=== PATIENT | female | born 1995 | race Caucasian/White ===

== ENCOUNTER 2018-01-24 06:26 | Emergency (ER) | payer OTHER, MEDICAID ==
[2018-01-24 06:39] VITALS: BP 133/87
--- NOTE | 2018-01-24 08:13 | XRAY Report ---
Reason: pain and r/o dislocation Procedure Date: 01/24/2018 Accession Number: [id number] / [id number] Procedure: XR - Shoulder 3 View LT CPT Code: FULL RESULT: EXAM: LEFT SHOULDER RADIOGRAPHY EXAM DATE: 01/24/2018 07:38 AM. CLINICAL HISTORY: Left shoulder pain and r/o dislocation. COMPARISON: SHOULDER 3 VIEW LT 07/16/2014 8:11 PM. TECHNIQUE: 3 views. FINDINGS: Bones: Normal. No fracture or bone lesion. Joints: The glenohumeral and acromioclavicular joints are normal. Soft tissues: The visualized hemithorax is unremarkable. No soft tissue swelling. IMPRESSION: Normal shoulder radiography. No fracture or dislocation identified. RADIA
[2018-01-24] MEDS ORDERED: IBUPROFEN 400 MG TABLET PO STA (08:26)
[2018-01-24] MEDS ORDERED: ACETAMINOPHEN 325 MG TABLET PO STA (08:26)
[2018-01-24] MEDS ORDERED: LIDOCAINE PATCH 5% TOP STA (08:26)
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
== END 2018-01-24 08:48 | disposition home or self-care (01) ==
LOC: ED 06:26
DX: S43.402A Unspecified sprain of left shoulder joint, initial encounter (principal); Y04.8XXA Assault by other bodily force, initial encounter; W22.8XXA Striking against or struck by other objects, initial encounter; Y93.F9 Activity, other caregiving; Y92.89 Other specified places as the place of occurrence of the external cause; Y99.0 Civilian activity done for income or pay; F17.200 Nicotine dependence, unspecified, uncomplicated
CPT/HCPCS: 1040M; 73030; 99283; A9270

== ENCOUNTER 2018-02-21 20:25 | Outpatient (CLI) | payer MEDICAID ==
--- NOTE | 2018-02-21 22:34 | Ultrasound Report ---
Reason: TEST POSITIVE Procedure Date: 02/21/2018 Accession Number: [id number] / [id number] Procedure: US - OB First Trimester CPT Code: FULL RESULT: EXAM: FIRST TRIMESTER OBSTETRIC ULTRASOUND (Less than 11 weeks) EXAM DATE: 02/21/2018 09:15 PM. CLINICAL HISTORY: TEST POSITIVE. LMP: Unknown. COMPARISONS: None. TECHNIQUE: Transabdominal and transvaginal ultrasound examination with static image documentation. CLINICAL DATES: EGA 5 weeks 5 days with ELIZABETH 10/19/2018 based on last menstrual period of 01/12/2018. ASSESSMENT: Gestational Sac: Single intrauterine. Mean gestational sac diameter: 14.5 mm = 5 weeks 5 days. Embryo: CRL (crown-rump length) 3.0 mm = 5 weeks 6 days. Cardiac activity: 101 beats per minute. Yolk sac: 3.0 mm. Amniotic fluid: Not accurately assessed at this gestational age. Early placenta: Not visible at this gestational age. Other: No perigestational fluid collection demonstrated. MATERNAL STRUCTURES: Uterus: Anteverted. Unremarkable. Cervix: Closed. Right Ovary/Adnexa: The ovary measures 3.1 x 1.6 x 2.5 cm, volume 6.4 cc. Unremarkable. Left Ovary/Adnexa: The ovary measures 3.5 x 1.9 x 2.2 cm, volume 7.6 cc. There is an echogenic area/mass related to the left ovary measuring 2.1 x 2.3 x 2.0 cm. Free Fluid: None. Other: None. IMPRESSION: 1. Single viable intrauterine at EGA 5 weeks 6 days with ELIZABETH 10/18/2018 based on crown-rump length, which is concordant with clinical dates. 2. Assigned dating is ELIZABETH 10/19/2018 based on by physician.. GREGORYA
== END 2018-02-21 20:26 | disposition home or self-care (01) ==
LOC: DI 20:25
PROVIDERS: ATTEND Registered Nurse
DX: Z32.01 Encounter for pregnancy test, result positive (principal); Z3A.01 Less than 8 weeks gestation of pregnancy
CPT/HCPCS: 76801; 76817

== ENCOUNTER 2018-03-29 08:00 | Outpatient (CLI) | payer MEDICAID ==
[2018-03-29 16:30] LABS: MUDS CUTOFF CONCENTRATIONS CUTOFF CONC BELOW:
[2018-03-29 16:42] LABS: BILIRUBIN,URINE NEGATIVE (NEGATIVE); GLUCOSE, URINE (UA) NEGATIVE (NEGATIVE); KETONES,URINE (UA) NEGATIVE (NEGATIVE); LEUKOCYTE ESTERASE, URINE NEGATIVE (NEGATIVE); NITRITE,URINE NEGATIVE (NEGATIVE); OCCULT BLOOD,URINE NEGATIVE (NEGATIVE); PH,URINE 7.5 PH (5.0-7.5); PROTEIN,URINE NEGATIVE (NEGATIVE); UROBILINOGEN,URINE 0.2 (NORMAL) E.U./dL (NORMAL)
[2018-03-29 16:45] LABS: CLARITY,URINE SL. CLOUDY (CLEAR)
[2018-03-29 16:52] LABS: AMPHETAMINE SCREEN,URINE NEGATIVE (NEGATIVE); BENZODIAZEPINES SCREEN, URINE NEGATIVE (NEGATIVE); COCAINE SCREEN URINE NEGATIVE (NEGATIVE); METHADONE SCREEN, URINE NEGATIVE (NEGATIVE); METHAMPHETAMINES SCREEN, URINE NEGATIVE (NEGATIVE); OPIATE SCREEN, URINE NEGATIVE (NEGATIVE); OXYCODONE SCREEN, URINE NEGATIVE (NEGATIVE); PROPOXYPHENE SCREEN, URINE NEGATIVE (NEGATIVE); TRICYCLIC ANTIDEPRESSANT,URINE NEGATIVE (NEGATIVE)
[2018-03-29 17:25] LABS: AMORPHOUS SEDIMENT,UR Few /LPF; BACTERIA,URINE None Seen /HPF (None Seen); RBC,URINE None Seen /HPF (0-5); SQUAMOUS EPITHELIAL CELL,UR MOD Squamous (<= Few)
== END 2018-03-29 23:59 | disposition home or self-care (01) ==
LOC: LAB.R 08:00
PROVIDERS: ATTEND Nurse Practitioner Obstetrics & Gynecology
DX: Z36.89 Encounter for other specified antenatal screening (principal)
CPT/HCPCS: 80306; 81001; 87086

== ENCOUNTER 2018-04-26 13:40 | Outpatient (CLI) | payer MEDICAID ==
[2018-04-26 14:03] LABS: BASOPHILS % (AUTO) 0.4 %; EOSINOPHILS # (AUTO) 0.1 10^3/uL (0.0-0.7); EOSINOPHILS % (AUTO) 0.7 %; HGB - HEMOGLOBIN 12.9 g/dL (12.0-16.0); LYMPHOCYTES # (AUTO) 1.4 10^3/uL (1.5-3.5); LYMPHOCYTES % (AUTO) 14.4 %; MEAN CORPUSCULAR HEMOGLOBIN 33.8 pg (27.0-31.0); MEAN CORPUSCULAR HGB CONC 36.1 g/dL (32.0-36.0); MEAN CORPUSCULAR VOLUME 93.7 fL (81.0-99.0); MEAN PLATELET VOLUME 8.2 fL (7.9-10.8); MONOCYTES # (AUTO) 0.4 10^3/uL (0.0-1.0); MONOCYTES % (AUTO) 4.3 %; NEUTROPHILS # (AUTO) 7.8 10^3/uL (1.5-6.6); NEUTROPHILS % (AUTO) 80.2 %; PLT - PLATELET COUNT 204 10^3/uL (130-450); RED BLOOD COUNT 3.83 10^6/uL (4.20-5.40); RED CELL DISTRIBUTION WIDTH 12.9 % (12.0-15.0); WHITE BLOOD COUNT 9.7 x10^3/uL (4.8-10.8)
[2018-04-26 14:09] LABS: BILIRUBIN,URINE NEGATIVE (NEGATIVE); GLUCOSE, URINE (UA) NEGATIVE (NEGATIVE); KETONES,URINE (UA) NEGATIVE (NEGATIVE); LEUKOCYTE ESTERASE, URINE TRACE (NEGATIVE); NITRITE,URINE NEGATIVE (NEGATIVE); OCCULT BLOOD,URINE NEGATIVE (NEGATIVE); PH,URINE 7.5 PH (5.0-7.5); PROTEIN,URINE NEGATIVE (NEGATIVE); UROBILINOGEN,URINE 0.2 (NORMAL) E.U./dL (NORMAL)
[2018-04-26 14:23] LABS: AMORPHOUS SEDIMENT,UR Moderate /LPF; BACTERIA,URINE Few /HPF (None Seen); CLARITY,URINE CLOUDY (CLEAR); RBC,URINE 0-5 /HPF (0-5); SQUAMOUS EPITHELIAL CELL,UR FEW Squamous (<= Few)
[2018-04-27 11:26] LABS: HEPATITIS C ANTIBODY NON-REACTIVE (NON-REACTIVE)
[2018-04-27 11:27] LABS: HEPATITIS B SURFACE ANTIGEN NON-REACTIVE (NON-REACTIVE)
[2018-04-27 14:16] LABS: HIV AG/AB 4TH GEN NON-REACTIVE (NON-REACTIVE)
== END 2018-04-26 13:41 | disposition home or self-care (01) ==
LOC: LAB 13:40
PROVIDERS: ATTEND Nurse Practitioner Obstetrics & Gynecology
DX: Z36.89 Encounter for other specified antenatal screening (principal)
CPT/HCPCS: 36415; 81001; 81599; 85025; 86592; 86762; 86803; 86850; 86900; 86901; 87086; 87340; 87389

== ENCOUNTER 2018-06-03 12:30 | Outpatient (CLI) | payer MEDICAID ==
--- NOTE | 2018-06-04 09:27 | Ultrasound Report ---
Reason: ENCTR FOR OTHER SPECIFIED SCREENING Procedure Date: 06/03/2018 Accession Number: [id number] / [id number] Procedure: US - OB Detailed Eval CPT Code: FULL RESULT: EXAM: COMPLETE OBSTETRICAL ULTRASOUND EXAM DATE: 06/03/2018 03:00 PM. CLINICAL HISTORY: anatomic survey. COMPARISON: 02/21/2018. TECHNIQUE: Real-time sonographic evaluation of the fetus performed by the ceramic tiler. Multiple career services representative static images were saved for review. Additional transvaginal imaging to more accurately evaluate cervical length/placental position/etc. DATING: Established EGA 20 weeks 2 days with ELIZABETH 10/19/2018 based on LMP. EGA 20 weeks 3 days with ELIZABETH 10/18/2018 based on prior ultrasound. EGA 20 weeks 3 days with ELIZABETH 10/18/2018 based on the current ultrasound. GENERAL EVALUATION Dunn . Cardiac activity: 146 bpm. movement: Visualized. Presentation: Cephalic. Placenta: Posterior position. No evidence for previa. Umbilical cord: 3 vessel cord. Central placental cord origin. Amniotic fluid: Subjectively normal. MVP 5.3 cm. BIOMETRY Bi-Parietal Diameter (BPD): 4.9 cm, 21 weeks/0 days Head Circumference (HC): 18.1 cm, 20 weeks/4 days Abdominal Circumference (AC): 15.1 cm, 20 weeks/days 2 Femur Length (FL): 3.2 cm, 20 weeks/0 days Estimated Weight: 341 g, 41 percentile for weeks/days. ANATOMY: anatomy not well seen face, nose lips, lateral ventricles. The posterior fossa, spine, 4 chamber heart and outflow tracts, stomach, abdominal wall and cord insertion, diaphragm, kidneys, bladder, and extremities were visualized and demonstrate no abnormality. MATERNAL STRUCTURES Uterus: Unremarkable. Cervix: Long and closed. Transabdominal length 4 cm. Right ovary/adnexa: Unremarkable. Left ovary/adnexa: Unremarkable. Free fluid: None. IMPRESSION: 1. Dunn live intrauterine with gestational age 20 weeks/2 days based on LMP 2. Estimated weight is within expected limits for assigned dating. 3. anatomy not well seen due to position face, nose lips, lateral ventricle. Follow-up can be with a FOCUS exam in 2-3 weeks the rest of the anatomic survey was unremarkable. RADIA
== END 2018-06-03 12:31 | disposition home or self-care (01) ==
LOC: DI 12:30
PROVIDERS: ATTEND Registered Nurse
DX: Z36.89 Encounter for other specified antenatal screening (principal)
CPT/HCPCS: 76811

== ENCOUNTER 2018-06-24 07:54 | Outpatient (CLI) | payer MEDICAID ==
--- NOTE | 2018-06-24 10:05 | Ultrasound Report ---
Reason: ENCOUNTER FOR OTHER SPECIFIED SCREENING Procedure Date: 06/24/2018 Accession Number: [id number] / [id number] Procedure: US - OB F/U or Repeat CPT Code: FULL RESULT: EXAM: FOLLOW-UP OBSTETRICAL ULTRASOUND EXAM DATE: 06/24/2018 08:38 AM. CLINICAL HISTORY: Completion of anatomy survey. COMPARISON: OB DETAILED EVAL 06/03/2018 1:53 PM. TECHNIQUE: Real-time sonographic evaluation of the fetus performed by the fast food delivery driver. Multiple bilingual inside sales representative static images were saved for review. DATING: Established EGA 20 weeks 2 days with ELIZABETH 10/19/2018 based on referring manager cash. GENERAL EVALUATION Dunn . Cardiac activity: 154 bpm. movement: Visualized. Presentation: Cephalic. Placenta: Posterior position. Amniotic fluid: Normal. MILLY 15 cm. MVP 4.9 cm. ANATOMY The nose and lips, coronal face and lateral ventricle are adequately visualized and normal. MATERNAL STRUCTURES No gross abnormality visualized. IMPRESSION: 1. Dunn live intrauterine with gestational age 20 weeks 2 days based on referring manager cash. 2. Normal completion of the anatomy survey with no abnormalities detected. RADIA
== END 2018-06-24 07:55 | disposition home or self-care (01) ==
LOC: DI 07:54
PROVIDERS: ATTEND Registered Nurse
DX: Z36.89 Encounter for other specified antenatal screening (principal)
CPT/HCPCS: 76816

== ENCOUNTER 2018-07-09 15:31 | Outpatient (CLI) | payer MEDICAID ==
[2018-07-09 16:59] LABS: HGB - HEMOGLOBIN 12.4 g/dL (12.0-16.0); MEAN CORPUSCULAR HEMOGLOBIN 32.9 pg (27.0-31.0); MEAN CORPUSCULAR HGB CONC 34.9 g/dL (32.0-36.0); MEAN CORPUSCULAR VOLUME 94.1 fL (81.0-99.0); RED BLOOD COUNT 3.76 10^6/uL (4.20-5.40); RED CELL DISTRIBUTION WIDTH 12.9 % (12.0-15.0); WHITE BLOOD COUNT 10.8 x10^3/uL (4.8-10.8)
== END 2018-07-09 15:32 | disposition home or self-care (01) ==
LOC: LAB 15:31
PROVIDERS: ATTEND Registered Nurse
DX: Z34.90 Encounter for supervision of normal pregnancy, unspecified, unspecified trimester (principal)
CPT/HCPCS: 36415; 82950; 85027; 86850

== ENCOUNTER 2018-07-11 17:19 | Outpatient (CLI) | payer MEDICAID ==
[2018-07-11 18:05] VITALS: BP 134/70
--- NOTE | 2018-07-11 20:09 | Ultrasound Report ---
Reason: R/O placenta abruption Procedure Date: 07/11/2018 Accession Number: [id number] / [id number] Procedure: US - OB F/U or Repeat CPT Code: FULL RESULT: EXAM: LIMITED OBSTETRICAL ULTRASOUND EXAM DATE: 07/11/2018 06:17 PM. CLINICAL HISTORY: Fall onto abdomen. . COMPARISON: OB F/U OR REPEAT 06/24/2018 8:11 AM. TECHNIQUE: Real-time sonographic evaluation of the fetus performed by the engineering technologist. Multiple senior human resources representative static images were saved for review. DATING: Established EGA 25 weeks 5 days with ELIZABETH 10/19/2018. GENERAL EVALUATION Dunn . Cardiac activity: 152 bpm. movement: Visualized. Presentation: Vertex Placenta: Posterior position. Placenta appears homogeneous with no focal placental fluid collection or displacement. Amniotic fluid: Normal. MILLY 16.1 cm. MVP 5.8 cm. IMPRESSION: 1. Posterior placenta appears within normal limits without evidence of abruption. Normal amniotic fluid volume with MILLY of 16.1 cm. RADIA
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
== END 2018-07-12 | disposition home or self-care (01) ==
LOC: WFO 17:19 → FBP 17:26 → WFO 07-12
PROVIDERS: ATTEND Nurse Practitioner Obstetrics & Gynecology
DX: O9A.212 Injury, poisoning and certain other consequences of external causes complicating pregnancy, second trimester (principal); S30.811A Abrasion of abdominal wall, initial encounter; Z3A.25 25 weeks gestation of pregnancy; W10.9XXA Fall (on) (from) unspecified stairs and steps, initial encounter
CPT/HCPCS: 76816; 99214

== ENCOUNTER 2018-08-26 17:53 | Outpatient (CLI) | payer MEDICAID ==
[2018-08-26 18:22] LABS: BILIRUBIN,URINE NEGATIVE (NEGATIVE); GLUCOSE, URINE (UA) NEGATIVE (NEGATIVE); KETONES,URINE (UA) 40 mg/dL (NEGATIVE); LEUKOCYTE ESTERASE, URINE NEGATIVE (NEGATIVE); NITRITE,URINE NEGATIVE (NEGATIVE); OCCULT BLOOD,URINE NEGATIVE (NEGATIVE); PROTEIN,URINE NEGATIVE (NEGATIVE); UROBILINOGEN,URINE 0.2 (NORMAL) E.U./dL (NORMAL)
[2018-08-26 18:46] LABS: BACTERIA,URINE Many /HPF (None Seen); CLARITY,URINE HAZY (CLEAR); RBC,URINE 0-5 /HPF (0-5); SQUAMOUS EPITHELIAL CELL,UR MANY Squamous (<= Few)
[2018-08-26 19:38] LABS: BASOPHILS % (AUTO) 0.2 %; EOSINOPHILS % (AUTO) 0.3 %; HGB - HEMOGLOBIN 11.5 g/dL (12.0-16.0); LYMPHOCYTES # (AUTO) 1.3 10^3/uL (1.5-3.5); LYMPHOCYTES % (AUTO) 11.3 %; MEAN CORPUSCULAR HGB CONC 34.2 g/dL (32.0-36.0); MEAN CORPUSCULAR VOLUME 93.6 fL (81.0-99.0); MEAN PLATELET VOLUME 9.8 fL (7.9-10.8); MONOCYTES # (AUTO) 0.6 10^3/uL (0.0-1.0); MONOCYTES % (AUTO) 4.9 %; NEUTROPHILS # (AUTO) 9.4 10^3/uL (1.5-6.6); NEUTROPHILS % (AUTO) 82.8 %; PLT - PLATELET COUNT 191 10^3/uL (130-450); RED BLOOD COUNT 3.59 10^6/uL (4.20-5.40); RED CELL DISTRIBUTION WIDTH 13.6 % (12.0-15.0); WHITE BLOOD COUNT 11.3 x10^3/uL (4.8-10.8)
[2018-08-26 19:46] LABS: CREATININE,URINE 184.7 mg/dL; PROTEIN/CREATININE RATIO,URINE 0.1 (<=0.2)
[2018-08-26 19:54] LABS: URIC ACID 4.2 mg/dL (2.6-7.2)
[2018-08-26 20:59] VITALS: BP 129/73
--- NOTE | 2018-08-27 09:32 | PROVIDER PROGRESS NOTE ---
- HPI Chief Complaint: Labor Current : Current EDU 10/19/18 Gestation 32 Weeks and 2 Days 5 Para 0 Vital Signs Temperature 37.1 C 08/26/18 18:05 Heart Rate 104 H 08/26/18 18:05 Respiratory Rate 20 08/26/18 18:05 Blood Pressure 142/77 H 08/26/18 18:05 O2 Saturation 96 08/26/18 18:05 Temperature 37.1 C 08/26/18 18:05 Heart Rate 86 08/26/18 20:30 Respiratory Rate 18 08/26/18 19:51 Blood Pressure 129/73 08/26/18 20:30 O2 Saturation 98 08/26/18 20:30 - Exam Date of service 08/26/2018 Deepali presents to [facility] with complaints of Navi Howell contractions which are increasing in intensity, in addition to pelvic pressure. She denies vaginal bleeding or leakage of fluid and reports +FM. She states the contractions are intermittent. Has difficulty keeping up with her fluid intake because of her daily vomiting. She states the anti-nausea medication is not working. Daily THC use she feels is helpful to help control her nausea. She also reports worsening headaches and "floaters" in her visual field. She denies RUQ or epigastric pain. Denies urinary urgency, hesitancy, or dysuria. O: FFN collected - negative UA collected - urine dark in color with no culture indicated; negative protein; positive ketones SVE closed/thick/high Normocephalic, atraumatic No evidence of distress No RUQ pain or epigastric tenderness noted DTRs 2+, no clonus Bilateral LE's no edema Date of NST read: 08/27/2018 NST reactive - baseline 150s, moderate variability, + accels, no decels 2 contractions appreciated via tocometry. Pt states she appreciates them like menstrual cramping. Repeat SVE 1 hour later unchanged. PIH labs: WNL- Urine neg protein protein/creatinine ratio 0.1 PLT 191 Uric acid 4.2 AST 20 LDH 141 A: 23yo @ 32.1 wks gestation by LMP False labor <37wks gestation, third trimester Mild dehydration P: Increased fluid intake during her time on [facility] and pt feeling improved. Patient encouraged to stop using THC in - reviewed that this may be contributing to her worsening nausea. Advised increased fluid intake and rest at home. Has f/u appt in the office tomorrow - advised her to keep this appt. Pt released home with precautions. She verbalized understanding and agrees to above plan. She denies further questions or concerns at this time. - Procedures OB Procedure Performed: NST Diagnosis/Indication for NST: labor NST Procedure: Date of NST read 08/27/2018 NST reacitve, baseline 150s, moderate variability, + accels, no decels 2 contractions appreciated via tocometry over 1 hour timespan. - Plan Plan: FINAL DIAGNOSIS: False labor <37wks gestation, third trimester Nausea and vomiting in , third trimester Headache in
== END 2018-08-26 20:45 | disposition home or self-care (01) ==
LOC: WFO 17:53 → FBP 17:57 → WFO 20:45
PROVIDERS: ATTEND Nurse Practitioner Obstetrics & Gynecology
DX: O47.03 False labor before 37 completed weeks of gestation, third trimester (principal); O99.283 Endocrine, nutritional and metabolic diseases complicating pregnancy, third trimester; E86.0 Dehydration; O21.2 Late vomiting of pregnancy; R51 Headache; O99.323 Drug use complicating pregnancy, third trimester; F12.90 Cannabis use, unspecified, uncomplicated; Z3A.32 32 weeks gestation of pregnancy
CPT/HCPCS: 81001; 82570; 82731; 83615; 84156; 84450; 84550; 85025; 87086; 99213

== ENCOUNTER 2018-09-07 20:59 | Outpatient (CLI) | payer MEDICAID ==
[2018-09-07 21:50] VITALS: BP 131/85
[2018-09-07 22:02] LABS: BILIRUBIN,URINE NEGATIVE (NEGATIVE); GLUCOSE, URINE (UA) NEGATIVE (NEGATIVE); KETONES,URINE (UA) NEGATIVE (NEGATIVE); LEUKOCYTE ESTERASE, URINE TRACE (NEGATIVE); NITRITE,URINE NEGATIVE (NEGATIVE); OCCULT BLOOD,URINE NEGATIVE (NEGATIVE); PROTEIN,URINE NEGATIVE (NEGATIVE); UROBILINOGEN,URINE 0.2 (NORMAL) E.U./dL (NORMAL)
[2018-09-07 22:14] LABS: CLARITY,URINE HAZY (CLEAR)
[2018-09-07 22:21] LABS: AMORPHOUS SEDIMENT,UR Few /LPF; BACTERIA,URINE Many /HPF (None Seen); RBC,URINE None Seen /HPF (0-5); SQUAMOUS EPITHELIAL CELL,UR MANY Squamous (<= Few)
[2018-09-07 23:07] LABS: RUPTURE OF MEMBRANES PLUS NEGATIVE (NEGATIVE)
[2018-09-08 00:45] LABS: CANDIDA GROUP DNA POSITIVE (NEGATIVE); CANDIDA KRUSEI DNA NEGATIVE (NEGATIVE); TRICHOMONAS VAGINALIS DNA NEGATIVE (NEGATIVE)
--- NOTE | 2018-09-08 03:25 | PROVIDER PROGRESS NOTE ---
- HPI Chief Complaint: Labor Current : Current EDU 10/19/18 Gestation 34 Weeks and 1 Days 4 Para 0 Vital Signs Temperature 36.6 C 09/07/18 21:35 Heart Rate 80 09/07/18 21:35 Respiratory Rate 16 09/07/18 21:35 Blood Pressure 131/85 H 09/07/18 21:35 O2 Saturation 100 09/07/18 21:35 Temperature 36.6 C 09/07/18 21:35 Heart Rate 80 09/07/18 21:35 Respiratory Rate 16 09/07/18 21:35 Blood Pressure 131/85 H 09/07/18 21:35 O2 Saturation 100 09/07/18 21:35 - Procedures OB Procedure Performed: NST Diagnosis/Indication for NST: labor NST Procedure: NST reactive. baseline 130s, moderate variability, + accels no decels Moderate uterine irritability noted via tocometry. Occasional uterine contra ctiosn noted which pt appreciates as BH contractions. Service Date of procedure: 09/07/18 Procedure Details: S: Deepali is a 23yo @ 34.0wks gestation by LMP who presented on 09/07/2018 with c/o back pain and frequent BH contractions which she feels have persistently increased in frequency and intensity throughout the day today despite increasing her fluid intake. She denies VB. She reports increased watery discharge today and is unsure if her water may be broken. She denies any irritation or foul smelling odor to the discharge. She reports +FM. O: NST reactive. Baseline 135, moderate variability, + accels, no decels Uterine irritability noted via tocometry. Occasional uterine contraction which patient appreciates as BH contractions. SVE closed/thick/high ROM plus negative UA negative AFFIRM pending A: 23yo @ 34.0wks gestation False labor <37wks gestation, third trimester vaginal discharge FHR Category I P: Discharge home with instructions to increase her fluid intake and rest. Will notify patient of results of AFFIRM once received and treat PRN. Pt released home with precautions and warning s/sx. Pt verbalized understanding and agrees to above plan. She denies further questions or concerns at this time. - Plan Plan: Discharge home with instructions to increase her fluid intake and rest. Will notify patient of results of AFFIRM once received and treat PRN. Pt released home with precautions and warning s/sx. Pt verbalized understanding and agrees to above plan. She denies further questions or concerns at this time. FINAL DIAGNOSIS: False labor <37wks gestation, third trimester
== END 2018-09-07 23:30 | disposition home or self-care (01) ==
LOC: WFO 20:59 → FBP 21:07 → WFO 23:30
PROVIDERS: ATTEND Nurse Practitioner Obstetrics & Gynecology
DX: O47.03 False labor before 37 completed weeks of gestation, third trimester (principal); O99.89 Other specified diseases and conditions complicating pregnancy, childbirth and the puerperium; N89.8 Other specified noninflammatory disorders of vagina; Z3A.34 34 weeks gestation of pregnancy
CPT/HCPCS: 81001; 84112; 87661; 87801; 99214

== ENCOUNTER 2018-09-24 16:57 | Outpatient (CLI) | payer MEDICAID ==
[2018-09-24 17:45] LABS: BILIRUBIN,URINE NEGATIVE (NEGATIVE); GLUCOSE, URINE (UA) NEGATIVE (NEGATIVE); KETONES,URINE (UA) NEGATIVE (NEGATIVE); LEUKOCYTE ESTERASE, URINE NEGATIVE (NEGATIVE); NITRITE,URINE NEGATIVE (NEGATIVE); OCCULT BLOOD,URINE NEGATIVE (NEGATIVE); PH,URINE 7.5 PH (5.0-7.5); PROTEIN,URINE NEGATIVE (NEGATIVE); UROBILINOGEN,URINE 0.2 (NORMAL) E.U./dL (NORMAL)
[2018-09-24 17:53] LABS: RUPTURE OF MEMBRANES PLUS NEGATIVE (NEGATIVE)
[2018-09-24 17:54] LABS: CLARITY,URINE CLEAR (CLEAR); RBC,URINE None Seen /HPF (0-5); SQUAMOUS EPITHELIAL CELL,UR FEW Squamous (<= Few)
[2018-09-24 17:55] LABS: BACTERIA,URINE None Seen /HPF (None Seen)
[2018-09-24 18:36] LABS: BASOPHILS % (AUTO) 0.1 %; EOSINOPHILS % (AUTO) 0.3 %; LYMPHOCYTES # (AUTO) 1.4 10^3/uL (1.5-3.5); LYMPHOCYTES % (AUTO) 14.3 %; MEAN CORPUSCULAR HEMOGLOBIN 32.6 pg (27.0-31.0); MEAN CORPUSCULAR HGB CONC 34.5 g/dL (32.0-36.0); MEAN CORPUSCULAR VOLUME 94.6 fL (81.0-99.0); MEAN PLATELET VOLUME 10.3 fL (7.9-10.8); MONOCYTES # (AUTO) 0.5 10^3/uL (0.0-1.0); MONOCYTES % (AUTO) 4.9 %; NEUTROPHILS % (AUTO) 79.8 %; PLT - PLATELET COUNT 197 10^3/uL (130-450); RED BLOOD COUNT 3.68 10^6/uL (4.20-5.40); RED CELL DISTRIBUTION WIDTH 13.8 % (12.0-15.0); WHITE BLOOD COUNT 10.1 x10^3/uL (4.8-10.8)
[2018-09-24 18:43] LABS: URIC ACID 3.8 mg/dL (2.6-7.2)
[2018-09-24 20:29] LABS: CREATININE,URINE 53.5 mg/dL
[2018-09-24 20:30] LABS: TOTAL PROTEIN,URINE TIMED < 6 mg/dL
[2018-09-24 21:45] VITALS: BP 147/88
--- NOTE | 2018-09-25 18:21 | PROVIDER PROGRESS NOTE ---
- HPI Chief Complaint: Labor Check Current : Current EDU 10/19/18 Gestation 36 Weeks and 3 Days 5 Para 0 Vital Signs Temperature 36.4 C L 09/24/18 17:10 Heart Rate 73 09/24/18 17:10 Respiratory Rate 20 09/24/18 17:10 Blood Pressure 149/86 H 09/24/18 17:10 O2 Saturation 98 09/24/18 17:10 Temperature 36.4 C L 09/24/18 17:10 Heart Rate 84 09/24/18 21:00 Respiratory Rate 18 09/24/18 21:00 Blood Pressure 147/88 H 09/24/18 21:00 O2 Saturation 98 09/24/18 19:15 - Procedures OB Procedure Performed: NST Diagnosis/Indication for NST: labor NST Procedure: 09/24/2018 Deepali present to [facility] with c/o leakage of vaginal fluid x 3 days. She states she did not think to come in sooner because she thought it was just urine but today she started to have contractions in addition. She denies ANNE, visual disturbances, RUQ or epigastric pain. She denies vaginal bleeding and reports +FM. NST reactive - baseline 140s, moderate variability, + accels, no decels Contractions palpate moderate every 10-15 minutes with soft resting tone. SVE closed/50/0, midposition. No gross leakage of fluid noted upon examination. ROM plus negative BP elevated 140s/90s - denies PIH warning s/sx. Urine neg protein. PI labs WNL. Rapid GBS collected - negative UA negative - culture note indicated. Repeat SVE unchanged. Pt advised to increase fluid intake and rest. Reviewed PIH warning s/sx and when to present in detail. Has f/u appt scheduled tomorrow- advised her to keep appt. FINAL DIAGNOSIS: Vaginal discharge Elevated BP without diagnosis of HTN False labor <37wks gestation
== END 2018-09-24 21:25 | disposition home or self-care (01) ==
LOC: WFO 16:57 → FBP 17:00 → WFO 21:25
PROVIDERS: ATTEND Nurse Practitioner Obstetrics & Gynecology
DX: O99.89 Other specified diseases and conditions complicating pregnancy, childbirth and the puerperium (principal); N89.8 Other specified noninflammatory disorders of vagina; R03.0 Elevated blood-pressure reading, without diagnosis of hypertension; O47.03 False labor before 37 completed weeks of gestation, third trimester; Z3A.36 36 weeks gestation of pregnancy
CPT/HCPCS: 36415; 81001; 82570; 83615; 84112; 84156; 84450; 84550; 85025; 87086; 87797; 99214

== ENCOUNTER 2018-09-27 13:46 | Outpatient (CLI) | payer MEDICAID ==
[2018-09-27 14:53] LABS: BASOPHILS % (AUTO) 0.2 %; EOSINOPHILS % (AUTO) 0.2 %; HGB - HEMOGLOBIN 11.6 g/dL (12.0-16.0); LYMPHOCYTES # (AUTO) 1.1 10^3/uL (1.5-3.5); LYMPHOCYTES % (AUTO) 11.9 %; MEAN CORPUSCULAR HEMOGLOBIN 32.5 pg (27.0-31.0); MEAN CORPUSCULAR HGB CONC 34.8 g/dL (32.0-36.0); MEAN CORPUSCULAR VOLUME 93.3 fL (81.0-99.0); MEAN PLATELET VOLUME 10.2 fL (7.9-10.8); MONOCYTES # (AUTO) 0.4 10^3/uL (0.0-1.0); MONOCYTES % (AUTO) 4.3 %; NEUTROPHILS # (AUTO) 7.8 10^3/uL (1.5-6.6); NEUTROPHILS % (AUTO) 83.1 %; PLT - PLATELET COUNT 188 10^3/uL (130-450); RED BLOOD COUNT 3.57 10^6/uL (4.20-5.40); RED CELL DISTRIBUTION WIDTH 13.8 % (12.0-15.0); WHITE BLOOD COUNT 9.4 x10^3/uL (4.8-10.8)
[2018-09-27 15:06] LABS: URIC ACID 4.5 mg/dL (2.6-7.2)
[2018-09-27 16:06] LABS: CREATININE,URINE 159.9 mg/dL; PROTEIN/CREATININE RATIO,URINE 0.1 (<=0.2)
[2018-09-27 16:33] VITALS: BP 122/73
--- NOTE | 2018-09-27 16:37 | Ultrasound Report ---
Reason: gestational hypertension Procedure Date: 09/27/2018 Accession Number: [id number] / [id number] Procedure: US - OB Biophysical Profile CPT Code: FULL RESULT: EXAM: BIOPHYSICAL PROFILE EXAM DATE: 09/27/2018 03:55 PM. CLINICAL HISTORY: 23-year-old female. Gestational hypertension. COMPARISON: OB F/U OR REPEAT 07/11/2018 6:17 PM. TECHNIQUE: Real-time sonographic evaluation of the fetus performed by the workers compensation claims examiner. Multiple guest service representative static images were saved for review. DATING: Established EGA 37 weeks 0 days with ELIZABETH 10/18/2018. GENERAL EVALUATION Dunn . Cardiac activity: 133 bpm. movement: Visualized. Presentation: Cephalic. Placenta: Right lateral position. No evidence for abruption. Amniotic fluid: Normal. MILLY 20.5 cm. MVP 7.0 cm. BIOPHYSICAL PROFILE Breathing = 2 Movement = 2 Tone = 2 Amniotic Fluid = 2 Total 09/26 IMPRESSION: 1. Dunn live intrauterine in cephalic position with gestational age 37 weeks 0 days based on established ELIZABETH. 2. Biophysical profile score 8 of 8. SHAMIKA
--- NOTE | 2018-10-12 02:20 | PROCEDURE REPORT ---
- HPI Diagnosis/Indication for NST: labor Current EDU 10/19/18 Gestation 36 Weeks and 6 Days 4 Para 0 Vital Signs Temperature 98.1 F 09/27/18 14:02 Heart Rate 92 09/27/18 14:02 Respiratory Rate 16 09/27/18 14:02 O2 Saturation 98 09/27/18 14:02 Temperature 98.1 F 09/27/18 14:02 Heart Rate 92 09/27/18 14:02 Respiratory Rate 16 09/27/18 14:02 Blood Pressure 122/73 09/27/18 16:09 O2 Saturation 98 09/27/18 14:02 - NST Procedure NST Procedure Start Date 09/27/18 Start Time 13:59 Stop Time 14:24 Vibroacoustic Stimulation Used No Patient States Movement Yes Cat I tracing - Results and Plan Findings/Impression: No change in cervical exam Cat I tracing Warning signs reviewed Discharged to home
== END 2018-09-27 17:21 | disposition home or self-care (01) ==
LOC: WFO 13:46 → FBP 13:48 → WFO 17:21
PROVIDERS: ATTEND Obstetrics & Gynecology
DX: O60.03 Preterm labor without delivery, third trimester (principal); Z3A.36 36 weeks gestation of pregnancy
CPT/HCPCS: 36415; 76819; 82570; 83615; 84156; 84450; 84460; 84550; 85025; 99214

== ENCOUNTER 2018-10-01 13:48 | Outpatient (CLI) | payer MEDICAID ==
[2018-10-01 14:21] VITALS: BP 130/85
--- NOTE | 2018-10-02 10:37 | PROVIDER PROGRESS NOTE ---
- HPI Chief Complaint: Hypertension/PIH Current : Current EDU 10/19/18 Gestation 37 Weeks and 3 Days 1 Para 0 Vital Signs Temperature 36.6 C 10/01/18 14:09 Heart Rate 85 10/01/18 14:09 Respiratory Rate 18 10/01/18 14:09 Blood Pressure 136/83 H 10/01/18 14:09 O2 Saturation 98 10/01/18 14:09 Temperature 36.6 C 10/01/18 14:09 Heart Rate 81 10/01/18 14:20 Respiratory Rate 18 10/01/18 14:09 Blood Pressure 130/85 H 10/01/18 14:20 O2 Saturation 98 10/01/18 14:09 - Procedures OB Procedure Performed: NST Diagnosis/Indication for NST: Gestational Hypertension NST Procedure: NST Procedure Start Date 10/01/18 Start Time 14:00 Stop Time 14:25 Vibroacoustic Stimulation Used No Patient States Movement Yes Service Date of procedure: 10/01/18 Findings: Date of service: 10/02/2018 S: Deepali presents today to [facility] for scheduled NST secondary to gestational hypertension diagnosis. She reports +FM and continued intermittent contractions. She denies vaginal bleeding or leakage of fluid. She reports continued, daily nausea with vomiting. She states she has not used marijuana for management in 4 days but the frequency of vomiting has remained consistent. She asks for induction of labor secondary to discomfort. She denies ANNE, visual disturbances, RUQ or epigastric pain and denies edema. O: BP 130s/80s. NST reactive - FHR baseline 130s, moderate variability. + accels, no decels. A: 23yo @ 37.3wks gestation Gestational hypertension- mildly elevated BPs FHR Category I P: Reviewed optimal timing of delivery to be 39 wks. Reviewed that since her BPs are stable at this time and her labs are WNL in addition to no additional warning s/sx of PET, that the recommendation is not to induce until after 38 weeks gestation as long as her BPs remain stable. Pt verbalized understanding and agrees to above plan. Has appt tomorrow for routine visit - advised her to keep that appt. Pt denies further questions or concerns at this time and was released home with precautions. FINAL DIAGNOSIS: Gestational Hypertension
== END 2018-10-01 14:40 | disposition home or self-care (01) ==
LOC: WFO 13:48 → FBP 13:52 → WFO 14:40
PROVIDERS: ATTEND Nurse Practitioner Obstetrics & Gynecology
DX: O13.3 Gestational [pregnancy-induced] hypertension without significant proteinuria, third trimester (principal); Z3A.37 37 weeks gestation of pregnancy; O21.2 Late vomiting of pregnancy; O99.323 Drug use complicating pregnancy, third trimester; F12.90 Cannabis use, unspecified, uncomplicated
CPT/HCPCS: 59025

== ENCOUNTER 2018-10-04 13:51 | Outpatient (CLI) | payer MEDICAID ==
[2018-10-04 14:07] VITALS: BP 138/79
--- NOTE | 2018-10-14 23:29 | PROCEDURE REPORT ---
- HPI Diagnosis/Indication for NST: Gestational Hypertension Current EDU 10/19/18 Gestation 37 Weeks and 6 Days 1 Para 0 Vital Signs Temperature 97.9 F 10/04/18 14:06 Heart Rate 91 10/04/18 14:06 Respiratory Rate 17 10/04/18 14:06 Blood Pressure 138/79 H 10/04/18 14:06 O2 Saturation 98 10/04/18 14:06 Temperature 97.9 F 10/04/18 14:06 Heart Rate 91 10/04/18 14:06 Respiratory Rate 17 10/04/18 14:06 Blood Pressure 138/79 H 10/04/18 14:06 O2 Saturation 98 10/04/18 14:06 - NST Procedure NST Procedure Start Date 10/04/18 Start Time 14:03 Stop Time 14:23 Vibroacoustic Stimulation Used No Patient States Movement Yes EFM 135 Moderate variability 15 x 15 accelerations no decelerations [place] quiet/irritable - Results and Plan Findings/Impression: Patient is a 23-year-old G1, P0 at 37 weeks and 1 day here for evaluation of possible gestational hypertension. Blood pressures were within normal range. NST was category 1 [place] was quiet routine discharge instructions were given warning signs reviewed Will conduct home blood pressure checks PIH labs pending We will follow-up in clinic Plan: We will follow-up in clinic with further evaluation for possible possible gestational hypertension
== END 2018-10-04 14:41 | disposition home or self-care (01) ==
LOC: WFO 13:51 → FBP 13:54 → WFO 14:41
PROVIDERS: ATTEND Obstetrics & Gynecology
DX: O26.892 Other specified pregnancy related conditions, second trimester (principal); R03.0 Elevated blood-pressure reading, without diagnosis of hypertension; Z3A.37 37 weeks gestation of pregnancy
CPT/HCPCS: 59025

== ENCOUNTER 2018-10-05 15:10 | Outpatient (CLI) | payer MEDICAID ==
[2018-10-05 15:44] VITALS: BP 134/78
--- NOTE | 2018-10-07 07:57 | PROCEDURE REPORT ---
- HPI Diagnosis/Indication for NST: Decreased movement Current EDU 10/19/18 Gestation 38 Weeks and 0 Days 4 Para 0 Vital Signs Temperature 36.8 C 10/05/18 15:35 Heart Rate 79 10/05/18 15:35 Respiratory Rate 16 10/05/18 15:35 Blood Pressure 92/66 10/05/18 15:35 O2 Saturation 100 10/05/18 15:35 Temperature 36.8 C 10/05/18 15:35 Heart Rate 85 10/05/18 15:43 Respiratory Rate 16 10/05/18 15:43 Blood Pressure 134/78 H 10/05/18 15:43 O2 Saturation 100 10/05/18 15:35 - NST Procedure NST Procedure Start Date 10/05/18 Start Time 15:20 Stop Time 15:50 Vibroacoustic Stimulation Used No Patient States Movement No - Results and Plan Findings/Impression: Reactive NST-Good movement noted here in the hospital. The strip was read on 10/07/2018 Impression: Intrauterine at 38 weeks gestation Decreased movement-resolved Plan: The patient will be discharged home. She has an induction scheduled for Sunday10/07/2018. She will call if she has any other problems or signs of labor ensue.
== END 2018-10-05 15:51 | disposition home or self-care (01) ==
LOC: WFO 15:10 → FBP 15:12 → WFO 15:51
PROVIDERS: ATTEND Obstetrics & Gynecology
DX: O36.8130 Decreased fetal movements, third trimester, not applicable or unspecified (principal); Z3A.38 38 weeks gestation of pregnancy
CPT/HCPCS: 59025

== ENCOUNTER 2018-10-07 06:26 | Inpatient (IN) | payer MEDICAID ==
[2018-10-07] MEDS ORDERED: SODIUM CHLORIDE FLUSH 0.9% 10 ML SYRINGE ONE (07:37)
[2018-10-07] MEDS ORDERED: ONDANSETRON 4 MG/2 ML VIAL IVP PRN (07:45)
[2018-10-07] MEDS ORDERED: SODIUM CHLORIDE FLUSH 0.9% 10 ML SYRINGE IVP PRN (07:45)
[2018-10-07] MEDS: miSOPROStol 100 MCG TABLET BC SCH ×3 (08:04→17:54)
[2018-10-07 08:23] LABS: BASOPHILS % (AUTO) 0.1 %; EOSINOPHILS # (AUTO) 0.1 10^3/uL (0.0-0.7); EOSINOPHILS % (AUTO) 0.6 %; HGB - HEMOGLOBIN 11.6 g/dL (12.0-16.0); LYMPHOCYTES # (AUTO) 1.4 10^3/uL (1.5-3.5); LYMPHOCYTES % (AUTO) 14.6 %; MEAN CORPUSCULAR HEMOGLOBIN 31.6 pg (27.0-31.0); MEAN CORPUSCULAR HGB CONC 34.4 g/dL (32.0-36.0); MEAN CORPUSCULAR VOLUME 91.8 fL (81.0-99.0); MEAN PLATELET VOLUME 10.6 fL (7.9-10.8); MONOCYTES # (AUTO) 0.5 10^3/uL (0.0-1.0); MONOCYTES % (AUTO) 5.5 %; NEUTROPHILS # (AUTO) 7.7 10^3/uL (1.5-6.6); NEUTROPHILS % (AUTO) 78.7 %; PLT - PLATELET COUNT 182 10^3/uL (130-450); RED BLOOD COUNT 3.67 10^6/uL (4.20-5.40); RED CELL DISTRIBUTION WIDTH 13.6 % (12.0-15.0); WHITE BLOOD COUNT 9.8 x10^3/uL (4.8-10.8)
[2018-10-07 08:24] LABS: CREATININE 0.5 mg/dL (0.4-1.0); URIC ACID 5.1 mg/dL (2.6-7.2)
[2018-10-07 09:13] LABS: CREATININE,URINE 109.5 mg/dL; PROTEIN/CREATININE RATIO,URINE 0.1 (<=0.2)
[2018-10-07] MEDS ORDERED: ZOLPIDEM 5 MG TABLET PO PRN (21:07)
[2018-10-08] MEDS: miSOPROStol 100 MCG TABLET BC SCH ×2 (05:55→10:05)
[2018-10-08] MEDS: SODIUM CHLORIDE FLUSH 0.9% 10 ML SYRINGE IVP SCH ×2 (07:01→12:53)
--- NOTE | 2018-10-08 08:49 | HISTORY & PHYSICAL EXAMINATION ---
Admit History - Visit Reason Visit Reason: Other - : 5 Parity: 0 Premature: 0 Ectopic: 0 : 4 Care: positive: [facility] Risk/History: positive: None Complications This : positive: Other Smoking Status: Former smoker - Mother's Labs Mother's Blood Type: positive: A Mother's RH: positive: Positive GBS: positive: Group B Step Negative Rubella Status: positive: Immune Meds/Allgy - Home Medications Home Medications: Ambulatory Orders Medication Instructions Recorded Confirmed No Known Home Medications 01/24/18 01/24/18 - Allergies Allergies/Adverse Reactions: Allergies Allergy/AdvReac Type Severity Reaction Status Date / Time adhesives AdvReac Unknown Rash Uncoded 06/18/15 13:27 coban AdvReac Unknown Uncoded 06/18/15 13:27 Review of Systems - Constitutional Constitutional: denies: Fatigue, Fever, Chills, Malaise - Eyes Eyes: denies: Blurred vision, Spots in vision, Dipolpia - Cardiovascular Cariovascular: denies: Irregular heart rate, Palpitations, Chest pain, Edema - Respiratory Respiratory: denies: SOB at rest - Gastrointestinal Gastrointestinal: denies: Abdominal pain, Constipation, Diarrhea, Nausea, Vomiting - Integumentary Integumentary: denies: Rash, Pruritis - Neurological Neurological: denies: Headache, Dizziness - Psychiatric Psychiatric: denies: Depression, Anxiety Physical - Abdominal Exam Vital Signs: Temp Pulse Resp BP Pulse Ox 36.8 C 73 18 148/93 H 100 10/07/18 21:14 10/07/18 21:14 10/07/18 21:14 10/07/18 21:14 10/07/18 21:14 Contraction Frequency (min/apart): occasional, irregular Contraction Intensity: positive: Mild Uterine Resting Tone: positive: Soft - Monitoring Heart Rate Baseline: 140 Strip Review: positive: Category I - Presentation Presentation: positive: Vertex - Vaginal Exam Membranes: positive: Membranes intact Dilation (in cm): 1 Effacement (%): 25 Station: positive: -2 Cervical Position: positive: Posterior - Speculum Exam Speculum Exam Performed: positive: No Plan for Labor - Plan For Labor I expect patient to be DC'd or transferred within 96 hours.: Yes Plan for Labor: 10/07/2018 @0700 HPI: Deepali is a 23yo @ 38.2 by LMP c/w 5.6wk U/S presents to [facility] for medical induction of labor secondary to gestational hypertension. She denies vaginal bleeding or leakage of fluid. She reports +FM. She reports intermittent contractions which are irregular relatively mild. She denies ANNE, visual disturbances, RUQ or epigastric pain. She has been a patient of [facility] for the duration of her which has remained uncomplicated with the exception of persistent nausea and vomiting and marijuana use. At her initial ultrasound she reported a hx of stress-induced "pseudoseizures" and was referred to [facility] for recommendations and they did not request additional consultation, imaging, or medication. She also experienced a fall down her stairs 07/11/2018 with negative workup and negative ultrasound. Upon arrival her cervix was noted to be 1/25/-2, posterior, medium consistency, vertex, with intact membranes. She was placed in observation status for pre-induction cervical ripening in anticipation for medical induction of labor secondary to gestational hypertension. Dating criteria: LMP: 01/12/2018 Initial ultrasound @ 5.6wks - agrees Serial exams- agree OB History: G1: 2015 Missed AB G2: 2016 Missed AB G3: 2017 Missed AB G4: 2017 Missed AB G5: Current Allergies: NKDA; Coban self-adherent wrap; Adhesive paper Medications: Diflucan, Reglan, Zofran, PNV Medical Hx: Pseudoseizures at age 19 - cleared by CT scan and referred to [facility] for consult in first trimester; Gestational HTN; Sinusitis; Anxiety, Depression; Psoriasis; PTSD; ADHD Surgical Hx: Tonsillectomy Social Hx: Former smoker, Regular marijuana use, social alcohol use prior to . FOB Fernando labs: Blood type: A positive, antibody negative Rubella immune RPR non-reactive HIV neg Hep B neg Hep C neg Hgb 11.6; Hct 33.7; PLT 182 UTOX neg GC/CT neg Pap normal 03/29/2018 28wk labs: 1 hour GTT 137 GBS NEGATIVE Ultrasounds: Initial ultrasound 02/21/2018 @ 5.6wks c/w LMP dating. 06/03/2018 FAS WNL with the exception of poor visualization of profile. Posterior placenta, no previa. 3VC. MILLY WNL. 06/24/2018 completion FAS WNL Physical Exam: Normocephalic, atraumatic Heart RRR w/o M/G/R Lungs CTAB Abdomen gravid, soft and nontender No RUQ tenderness noted upon palpation EFW 3300g SVE 03/15/-2, posterior, vertex, membranes intact Bilateral LE's no edema DTRs 2+, no clonus Mood is good Assessment: 23yo @ 38.2wks gestation by LMP c/w 5.6wks gestation Gestational HTN- PIH labs WNL GBS negative Plan: Pre-induction cervical ripening with 50mcg BC misoprostol q 4 hours in anticipation for induction of labor Place in observation status until onset of active labor, SROM, epidural placement, or initiation of pitocin. Continuous monitoring Encouraged ambulation and frequent position changes Nitrous oxide PRN Epidural per maternal request Reviewed plan of care with patient, family, and labor RN at the bedside. Pt denies further questions or concerns at this time.
[2018-10-08 09:09] LABS: BASOPHILS % (AUTO) 0.2 %; EOSINOPHILS % (AUTO) 0.3 %; LYMPHOCYTES # (AUTO) 1.3 10^3/uL (1.5-3.5); LYMPHOCYTES % (AUTO) 12.3 %; MEAN CORPUSCULAR HEMOGLOBIN 32.6 pg (27.0-31.0); MEAN CORPUSCULAR HGB CONC 35.3 g/dL (32.0-36.0); MEAN CORPUSCULAR VOLUME 92.4 fL (81.0-99.0); MEAN PLATELET VOLUME 10.4 fL (7.9-10.8); MONOCYTES # (AUTO) 0.5 10^3/uL (0.0-1.0); NEUTROPHILS # (AUTO) 8.5 10^3/uL (1.5-6.6); NEUTROPHILS % (AUTO) 81.6 %; PLT - PLATELET COUNT 171 10^3/uL (130-450); RED BLOOD COUNT 3.68 10^6/uL (4.20-5.40); RED CELL DISTRIBUTION WIDTH 13.2 % (12.0-15.0); WHITE BLOOD COUNT 10.4 x10^3/uL (4.8-10.8)
[2018-10-08 09:35] LABS: URIC ACID 5.4 mg/dL (2.6-7.2)
--- NOTE | 2018-10-08 09:45 | PROVIDER PROGRESS NOTE ---
Subjective - Subjective Subjective: 10/08/2018 S: Patient laying comfortably in bed on her right side. She elected to take an Ambien last night and states she slept well. She declined misoprostol over night secondary to her desire to get a good night's rest. She denies ANNE, visual disturbances, RUQ or epigastric pain. Family supportive at the bedside. O: BPs consistently 130s-140s/90s. T 36.8; RR 18 Heart RRR w/o M/G/R, lungs CTAB, abdomen gravid, soft and nontender with no RUQ pain upon palpation. Bilateral LE's no edema. SVE deferred today secondary to absence of contractions throughout the night. Last SVE 10/07/2018 at approximately 1700 - unchanged. FHR baseline 140s, moderate variability, + accels, no decels Intermittent, irregular contractions via tocometry A: 23yo @ 38.3wks gestation by LMP c/w 5.6wk U/S Gestational HTN - BP mild range; PIH labs WNL GBS neg Pre-induction cervical ripening with 50mcg BC misoprostol s/p 4 total doses P: Continue pre-induction cervical ripening Repeat SVE at the end of today or sooner PRN Continuous monitoring Encouraged ambulation and frequent position changes Pt verbalized understanding and agrees to above plan. She denies further questions or concerns at this time. Objective - Lab Results Fish Bones: 10/08/18 09:03 10/07/18 08:03 Other Labs: Lab Results x24hrs 10/08/18 Range/Units 09:03 WBC 10.4 (4.8-10.8) x10^3/uL RBC 3.68 L (4.20-5.40) 10^6/uL Hgb 12.0 (12.0-16.0) g/dL Hct 34.0 L (37.0-47.0) % MCV 92.4 (81.0-99.0) fL MCH 32.6 H (27.0-31.0) pg MCHC 35.3 (32.0-36.0) g/dL RDW 13.2 (12.0-15.0) % Plt Count 171 (130-450) 10^3/uL MPV 10.4 (7.9-10.8) fL Neut # (Auto) 8.5 H (1.5-6.6) 10^3/uL Lymph # (Auto) 1.3 L (1.5-3.5) 10^3/uL Josephine # (Auto) 0.5 (0.0-1.0) 10^3/uL Eos # (Auto) 0.0 (0.0-0.7) 10^3/uL Baso # (Auto) 0.0 (0.0-0.1) 10^3/uL Absolute Nucleated RBC 0.00 x10^3/uL Nucleated RBC % 0.0 /100WBC
[2018-10-08] MEDS ORDERED: miSOPROStol 200 MCG TABLET ONE (11:49)
[2018-10-08] MEDS ORDERED: LIDOCAINE-MPF 1% 30 ML VIAL ONE (11:49)
[2018-10-08] MEDS ORDERED: OXYTOCIN/DEXTROSE 5 % 30 UNIT/500 ML BAG IV ONE ×2 (11:50→20:23)
[2018-10-08] MEDS ORDERED: fentaNYL 100 MCG/2 ML VIAL IVP PRN (12:55)
[2018-10-08] MEDS: LACTATED RINGERS 1,000 ML IV SCH ×2 (13:59→17:37)
--- NOTE | 2018-10-08 14:08 | ANESTHESIA ---
Pre-Anesthesia VS, & Labs - Diagnosis Active labor - Procedure vaginal delivery Vital Signs: Temp Pulse Resp BP Pulse Ox 36.8 C 73 18 148/93 H 100 10/07/18 21:14 10/07/18 21:14 10/07/18 21:14 10/07/18 21:14 10/07/18 21:14 Height 5 ft 3 in Weight (kg) 82.1 kg Body Mass Index 24.1 - NPO Last Food Intake: clear liquids - Is Patient ?: Yes - Lab Results Current Lab Results: Laboratory Tests 10/08/18 09:03: Uric Acid 5.4, AST 22 10/08/18 09:03: WBC 10.4, RBC 3.68 L, Hgb 12.0, Hct 34.0 L, MCV 92.4, MCH 32.6 H , MCHC 35.3, RDW 13.2, Plt Count 171, MPV 10.4, Neut # (Auto) 8.5 H, Lymph # (Auto) 1.3 L, Eaton # (Auto) 0.5, Eos # (Auto) 0.0, Baso # (Auto) 0.0, Absolute Nucleated RBC 0.00, Nucleated RBC % 0.0 10/08/18 09:03: Lactate Dehydrogenase 147 10/07/18 08:03: Lactate Dehydrogenase 139 10/07/18 08:03: Creatinine 0.5, Estimated GFR (MDRD) 154, Uric Acid 5.1, AST 19 10/07/18 08:03: WBC 9.8, RBC 3.67 L, Hgb 11.6 L, Hct 33.7 L, MCV 91.8, MCH 31.6 H, MCHC 34.4, RDW 13.6, Plt Count 182, MPV 10.6, Neut # (Auto) 7.7 H, Lymph # (Auto) 1.4 L, Eaton # (Auto) 0.5, Eos # (Auto) 0.1, Baso # (Auto) 0.0, Absolute Nucleated RBC 0.00, Nucleated RBC % 0.0 Fish Bones: 10/08/18 09:03 10/07/18 08:03 Home Medications and Allergies Active Medications Fentanyl (Fentanyl) 50 mcg IVP Q1HR PRN PRN Reason: PAIN Last Admin: 10/08/18 13:00 Dose: 50 mcg Lactated Ringer's (Lr) 1,000 mls @ 100 mls/hr IV .Q10H [facility] Last Admin: 10/08/18 13:59 Dose: 900 mls/hr Misoprostol (Cytotec) 50 mcg BC Q4HR [facility] Last Admin: 10/08/18 10:05 Dose: 50 mcg Ondansetron HCl (Zofran Inj) 4 mg IVP Q4HR PRN PRN Reason: Nausea / Vomiting Sodium Chloride (Normal Saline Flush 0.9%) 10 ml IVP 0100,0900,1700 [facility] Last Admin: 10/08/18 12:53 Dose: 10 ml Sodium Chloride (Normal Saline Flush 0.9%) 10 ml IVP PRN PRN PRN Reason: NEEDED PER PROVIDER ORDERS Zolpidem Tartrate (Ambien) 10 mg PO QPM PRN PRN Reason: Insomnia Last Admin: 10/07/18 21:17 Dose: 10 mg No Known Home Medications 01/24/18 Allergies/Adverse Reactions: Allergies Allergy/AdvReac Type Severity Reaction Status Date / Time adhesives AdvReac Unknown Rash Uncoded 06/18/15 13:27 coban AdvReac Unknown Uncoded 06/18/15 13:27 Anes History & Medical History - Anesthetic History Anesthesia Complications: reports: No previous complications - Medical History Cardiovascular: reports: Hypertension (gestational) Pulmonary: reports: None Gastrointestinal: reports: GERD (during ) Urinary: reports: None Neuro: reports: Seizure disorder (last seizure one year ago) Musculoskeletal: reports: None Endocrine/Autoimmune: reports: None Blood Disorders: reports: None Skin: reports: Eczema Smoking Status: Former smoker (quit 9mo ago) Psychosocial: reports: Depression, Anxiety, Cannabis (daily cannabis, quit 2 weeks ago) - Surgical History Eyes Ears Nose Throat (EENT): Tonsil/Adenoidectomy - Obstetrical History : 5 Parity: 0 Events: positive: None Complications: positive: Other (Gestational hypertension) Exam General: Alert, Oriented x3, Cooperative, No acute distress Dental: WNL Mouth Openin Fingerbreadth Neck Mobility: Normal Mallampati classification: II Thyromental Distance: greater than 6 cm Plan Anesthesia Type: Epidural Consent for Procedure(s) Verified and Reviewed: Yes Code Status: Attempt Resuscitation ASA classification: 2-Mild systemic disease Is this case an emergency?: No
[2018-10-08] MEDS ORDERED: NALBUPHINE 10 MG/ML AMP IVP PRN (14:12)
[2018-10-08] MEDS ORDERED: ONDANSETRON 4 MG/2 ML VIAL IVP PRN (14:12)
[2018-10-08] MEDS ORDERED: ePHEDrine 50 MG/ML VIAL IVP PRN (14:12)
[2018-10-08] MEDS ORDERED: LACTATED RINGERS 500 ML IV ONE (14:12)
[2018-10-08] MEDS ORDERED: fent/BUPIV 2 MCG/0.125% 250 ML EP PRN (14:12)
[2018-10-08] MEDS ORDERED: NALOXONE 0.4 MG/ML VIAL IVP PRN (14:12)
[2018-10-08] MEDS ORDERED: fent/BUPIV 2 MCG/0.125% 250 ML EP ONE (14:14)
--- NOTE | 2018-10-08 16:49 | PROVIDER PROGRESS NOTE ---
Labor Progress Note - Uterine Monitoring Uterine Monitoring Mode: positive: External toco Contraction Frequency (min/apart): 3-5 Contraction Intensity: positive: Strong Uterine Resting Tone: positive: Soft - Monitoring Monitor Mode: positive: External ultrasound Heart Rate Baseline: 140 Heart Rate Variability: positive: Moderate (6-25 bmp) Accelerations: positive: Present, 15x15 Decelerations: positive: None Strip Review: positive: Category I - Vaginal Exam Dilation (in cm): 5 Effacement (%): 100 Station: 1 Cervical Position: Anterior - Labor Progress Note Labor Progress Note/Additional Text: S: Comfortable in bed with epidural. Feeling increased pressure. Feeling reassured about making progress spontaneously today. O: FHR baseline 140s, moderate4 variability, + accels, no decels Contractions palpate strong every 3-5 minutes with soft resting tone. SVE 5/100/+1, vertex, anterior SROM @ 1123 and was noted to be a copious amount of clear fluid. BPs 120-130/70-80s A: 23yo @ 38.3wks gestation Gestational HTN Active labor GBS neg P: Continuous monitoring Continue expectant management Anticipate spontaneous vaginal delivery
[2018-10-08] MEDS ORDERED: LACTATED RINGERS 1,000 ML IV ONE (17:43)
[2018-10-08] MEDS ORDERED: SODIUM CHLORIDE 0.9% 10 ML ONE (19:03)
[2018-10-08] MEDS ORDERED: LIDOCAINE-PF 2% 10 ML AMP SUBQ ONE (19:03)
[2018-10-08] MEDS ORDERED: fentaNYL 100 MCG/2 ML VIAL ONE (19:03)
--- NOTE | 2018-10-08 19:04 | ANESTHESIA PROCEDURE NOTE ---
Anesthesia Epidural Template - Other Comments Other Comments: Patient reports peritoneal pressure with contractions. Epidural changed to 10ml Q45 mins PIEB. Epidural dosed with 5ml 2% lidocaine with 100mcg fentanyl and 10ml PF NS. Patient reports improved pain with contractions but continues to have intense rectal pressure/urge to push. Informed patient it is difficult to block pressure.
[2018-10-08] MEDS: OXYTOCIN/DEXTROSE 5 % 30 UNIT/500 ML BAG IV PRN ×2 (19:43→20:15)
[2018-10-08] MEDS ORDERED: HYDROCORTISONE 1% CREAM 28 GM TUBE PR PRN (19:56)
[2018-10-08] MEDS ORDERED: WITCH HAZEL/GLYCERIN 1 PAD TOP PRN (19:56)
--- NOTE | 2018-10-08 20:11 | DELIVERY NOTE ---
Delivery Note - Labor Labor: positive: Other - Infant Delivery Method Delivery Method: positive: Spontaneous vaginal delivery - Cervical Ripening Method Cervical Ripening Method: positive: Misoprostil - Presentation Presentation: positive: Vertex, KYLE - right occiput anterior - Nuchal Cord Nuchal Cord: positive: None - Amniotic Fluid Description Amniotic Fluid Description: positive: Clear - Episiotomy Type Episiotomy Type: positive: None - Laceration Laceration: positive: 1st degree, Labial - Suture Suture Type: positive: Vicryl Suture Size: positive: 3-0 - Delivery Outcome Delivery Outcome: positive: Livebirth - [place]: positive: Placed in direct skin contact with mother, Stimulated, Warmed, [place] used [place] sex: positive: Female - Cord Cord: positive: 3 vessels - Placenta Placenta: positive: Intact, Spontaneous - Estimated Blood Loss Estimated Blood Loss (in cc): 200 - Post Delivery Events Post Delivery Events: positive: No post delivery events - Delivery Comments (Free Text/Narrative) Delivery Comments (Free Text/Narrative): Labor: This 23yo @ 38.3wks gestation by LMP c/w 5.6wk U/S presented to [facility] for medical induction of labor secondary to gestational hypertension on 10/07/2018. Cervix was 1/25/-3, posterior with intact membranes, in a vertex position. Pt was given 4 total doses of 50mcg BC misoprostol for effective cervical ripening. SROM occurred at 1123 and was noted to be a copious amount of clear fluid. FHR pattern demonstrated Category I pattern throughout labor. Normal labor course. Epidural placed per maternal request. Patient progressed to c/c/+2 with spontaneous urge to push at 1932. : Normal of viable female infant on 10/08/2018 at 1941. No nuchal cord. The was placed on maternal abdomen, stimulated, dried, and placed skin to skin. 's 7/9 at 1 and 5 min respectively. Pitocin administered via IV for hemostasis. The umbilical cord was allowed to stop pulsating at which time it was doubly clamped by CNM and cut by FOB. Cord blood was obtained. Placenta delivered spontaneously and intact at 1945. 3VC. EBL 200mL. Uterine fundus firm and there is no excessive bleeding. The perineum, vagina, and cervix were inspected and found to have a minor first degree left labial laceration which was repaired using a 3-[address]-1 needle in standard fashion under sterile conditions with one interrupted stitch. Vaginal examination following repair was done. Tissues well approximated. Family bonding well. Both mother and baby were left in stable condition.
[2018-10-09 06:16] LABS: BASOPHILS % (AUTO) 0.3 %; EOSINOPHILS % (AUTO) 0.2 %; HGB - HEMOGLOBIN 11.2 g/dL (12.0-16.0); LYMPHOCYTES # (AUTO) 1.8 10^3/uL (1.5-3.5); MEAN CORPUSCULAR HGB CONC 35.4 g/dL (32.0-36.0); MEAN CORPUSCULAR VOLUME 93.2 fL (81.0-99.0); MEAN PLATELET VOLUME 10.6 fL (7.9-10.8); MONOCYTES # (AUTO) 0.9 10^3/uL (0.0-1.0); MONOCYTES % (AUTO) 6.6 %; NEUTROPHILS # (AUTO) 11.2 10^3/uL (1.5-6.6); NEUTROPHILS % (AUTO) 79.4 %; PLT - PLATELET COUNT 190 10^3/uL (130-450); RED BLOOD COUNT 3.39 10^6/uL (4.20-5.40); RED CELL DISTRIBUTION WIDTH 13.3 % (12.0-15.0); WHITE BLOOD COUNT 14.1 x10^3/uL (4.8-10.8)
[2018-10-09 06:41] LABS: CREATININE 0.6 mg/dL (0.4-1.0); URIC ACID 5.1 mg/dL (2.6-7.2)
[2018-10-09] MEDS: SODIUM CHLORIDE FLUSH 0.9% 10 ML SYRINGE IVP SCH (07:24)
[2018-10-09] MEDS: ACETAMINOPHEN 500 MG TABLET PO SCH ×2 (10:58→22:03)
[2018-10-09] MEDS: IBUPROFEN 800 MG TABLET PO SCH ×2 (10:58→22:03)
[2018-10-09] MEDS: DOCUSATE SODIUM 100 MG CAPSULE PO SCH ×3 (10:59→20:50)
[2018-10-09] MEDS: LACTATED RINGERS 1,000 ML IV SCH (11:49)
--- NOTE | 2018-10-09 17:38 | PROVIDER PROGRESS NOTE ---
Subjective - Prog Note Date Prog Note Date: 10/09/18 Prog Note Time: 12:00 - Subjective Subjective: S: Bonding well with baby. Some difficulty secondary to difficulty getting baby to latch well. She denies pain with latch but did notice yesterday that she was having trouble getting her tongue to protrude all of the way. was evaluated for and diagnosed with tongue tie by hardening machine operator helper and had it clipped. Pt states this has improved the latch. has been able to pump a large amount of colostrum and syringe feed. She is feeling well overall other than tired. Some soreness at perineum but overall denies pain. Denies ANNE, visual disturbances, RUQ or epigastric pain. Family supportive at the bedside. O: Heart RRR w/o M/G/R, lungs CTAB, abdomen soft and nontender with fundus firm at U. Perineum intact and repair without edema. Light lochia rubra. Bilateral LE's no edema. BP 126/66 (130s/80s throughout the night), T 36.8, HR 83, RR 18 Hgb 11.6-->12.0-->11.2 Hct 33.7-->34.0-->31.6 PLT 182-->171-->190 Creatinine 0.5-->0.6 Uric Acid 5.1-->5.4-->5.1 AST 19-->22-->26 LDH 139-->147-->271 Protein/creatinine ratio on admit 0.1 A: 23yo -->P1 PPD#1 s/p TSVD of viable female Gestational HTN - labs stable with exception of elevated LDH. Will repeat labs in the morning if BPs are elevated. P: Continue routine pp care and medications. Special attention to today and advised pt to ask questions and seek assistance with feed from assigned [facility] labor RN who is a jd edwards consultant. Reviewed plan of care with Dr. Canela who intends to round on the patient and evaluate for discharge home tomorrow. Pt and family verbalized understanding and agree to above plan. They deny further questions or concerns at this time. Objective - Vital Signs/Intake & Output Vital Signs: Vital Signs x48h Temp Pulse Resp BP BP Pulse Ox 10/09/18 16:11 36.9 C 84 18 131/69 H 99 10/09/18 11:40 36.8 C 83 16 126/66 Intake & Output: Intake & Output 10/06/18 10/07/18 10/08/18 10/09/18 23:59 23:59 23:59 23:59 Intake Total 3700 Output Total 1000 1240 Balance 2700 -1240 - Lab Results Fish Bones: 10/09/18 06:10 10/09/18 06:10 Other Labs: Lab Results x24hrs 10/09/18 10/09/18 10/09/18 Range/Units 06:10 06:10 06:10 WBC 14.1 H (4.8-10.8) x10^3/uL RBC 3.39 L (4.20-5.40) 10^6/uL Hgb 11.2 L (12.0-16.0) g/dL Hct 31.6 L (37.0-47.0) % MCV 93.2 (81.0-99.0) fL MCH 33.0 H (27.0-31.0) pg MCHC 35.4 (32.0-36.0) g/dL RDW 13.3 (12.0-15.0) % Plt Count 190 (130-450) 10^3/uL MPV 10.6 (7.9-10.8) fL Neut # (Auto) 11.2 H (1.5-6.6) 10^3/uL Lymph # (Auto) 1.8 (1.5-3.5) 10^3/uL Sebastian # (Auto) 0.9 (0.0-1.0) 10^3/uL Eos # (Auto) 0.0 (0.0-0.7) 10^3/uL Baso # (Auto) 0.0 (0.0-0.1) 10^3/uL Absolute Nucleated RBC 0.00 x10^3/uL Nucleated RBC % 0.0 /100WBC Creatinine 0.6 (0.4-1.0) mg/dL Estimated GFR (MDRD) 125 (>89) Uric Acid 5.1 (2.6-7.2) mg/dL AST 26 (10-42) IU/L Lactate Dehydrogenase 271 H (91-225) IU/L
[2018-10-10] MEDS: IBUPROFEN 800 MG TABLET PO SCH ×3 (03:46→06:51)
[2018-10-10] MEDS: ACETAMINOPHEN 500 MG TABLET PO SCH ×3 (03:47→15:36)
[2018-10-10] MEDS: DOCUSATE SODIUM 100 MG CAPSULE PO SCH (08:32)
[2018-10-10] MEDS ORDERED: LABETALOL 100 MG TABLET PO SCH (15:30)
[2018-10-10 16:33] VITALS: BP 132/64
--- NOTE | 2018-10-10 18:07 | Labor Flowsheet ---
Labor Flowsheet Datetime Report Generated by CPN: 10/10/2018 18:07 Datetime: 10/10/2018 16:30 VITAL SIGNS NBP Sys/Kerry/Mean (mmHg): 132 : 64 : 78 Pulse: 77 LaborFlag: Labor Datetime: 10/10/2018 08:25 SpO2 (%): 100 Datetime: 10/08/2018 19:51 Temperature (C): 37.5 Datetime: 10/08/2018 19:45 Stage 2 Comments: Spontaneous placenta del @ 1945, visually intact. Routine discard Datetime: 10/08/2018 19:41 ASSESSMENT A Monitor Mode: Telemetry FHR Baseline Rate : 145 Variability: Moderate 6-25 bpm Accelerations: 15X15 Comments: heart tones ranging from 80s up to 180s. Oxygen Method: Room Air Datetime: 10/08/2018 19:34 VAGINAL EXAM Dilatation (cm): 10.0 Exam by: Bhumi Vaginal Exam Comments: complete STAGE 2 Pushing: Coached on Pushing; Urge to Push Pushing Position: Pushing with Contractions; Pushing Right Side; Pushing Lithotomy Pushing Progress: Descent with Pushing; Pushing Effectively with Contractions Datetime: 10/08/2018 19:33 Patient Care Comments: 200 ml UO Datetime: 10/08/2018 19:30 UTERINE ACTIVITY Monitor Mode: External Frequency (min): 2-3 Quality: Strong Duration (sec): 80-120 Pattern: Normal: <= 5 Contractions in 10 Minutes Resting Tone (Palpate): Relaxed Category: Category I COMMUNICATION Communication: Provider at Bedside Communication Comments: Bhumi here Datetime: 10/08/2018 19:25 Station: 2 Datetime: 10/08/2018 19:15 Contraction Comments: wanting to push Provider Notified (Name): Bhumi CNM Datetime: 10/08/2018 19:12 Decelerations: Prolonged Datetime: 10/08/2018 18:56 Epidural Procedure Other: Redose Datetime: 10/08/2018 18:50 Effacement (%): 90 Anesthesia Comments: Min Reza INSPECTOR WATCH ASSEMBLY here Datetime: 10/08/2018 18:33 Vaginal Bleeding: Normal Show Cervix, Consistency: Soft Cervix, Position: Anterior Datetime: 10/08/2018 18:00 ANESTHESIA Anesthesia Plans: Epidural Anesthesia Level Check: T12 Datetime: 10/08/2018 17:45 Monitor Interventions for UA: [place] Adjusted Datetime: 10/08/2018 17:35 PATIENT CARE IV/Blood Work: New IV Bag Hung; IV Bag Number @ 2 Datetime: 10/08/2018 16:48 Respirations: 20 Patient Position/Activity: Left Lateral Datetime: 10/08/2018 16:46 Monitor Interventions for FHR: Ultrasound Adjusted Datetime: 10/08/2018 16:43 Hygiene: Giana Care; Underpad Changed Datetime: 10/08/2018 16:30 Pitocin Checklist: At Least 1 Acceleration of 15 bpm x 15 Seconds in 30 Minutes or Adequate Variabi lity; No More than 5 Uterine Contractions in 10 Minutes for any 20 Minute Interval; Uterus Palpates S oft between Contractions Datetime: 10/08/2018 15:37 I/O Interventions: Varela Cath Inserted Datetime: 10/08/2018 14:23 Epidural Positioning: Sitting Epidural Procedure: Cath Placed Datetime: 10/08/2018 14:09 PROCEDURE TIME OUT Procedure Verify: Correct Patient Identity; Accurate Procedure Consent Form; Agreement on Procedure to be Done; Correct Patient Position Datetime: 10/08/2018 13:54 Stage of : Labor Provider Reviewed Strip: Yes Notification Reason: Status Update Datetime: 10/08/2018 13:03 MEDICATIONS Analgesics/Sedatives: Fentanyl (mcg) @ 50 Datetime: 10/08/2018 12:18 PAIN Pain Scale: 8 Pain Presence: Intermittent Pain Type: Burning Pain Location: Abdomen; Back Pain Coping: Breathing Through Contractions Pain Assessment Comments: Trying for a non-medicated labor Comfort Measures: Breathing/Relaxation Datetime: 10/08/2018 11:23 Membrane Status: Ruptured Membranes Rupture Method: Spontaneous Amniotic Fluid Color: Clear Amniotic Fluid Amount: Copious Amniotic Fluid Odor: Normal Datetime: 10/08/2018 10:05 Cervical Ripening Agents: Cytotec @ Datetime: 10/08/2018 09:30 FHR Baseline Changes: No Baseline Change Datetime: 10/08/2018 07:52 MATERNAL ASSESSMENT Level of Consciousness: Fully Conscious DTR's/Clonus: DTRs 3+; No Clonus Headache: Denies Breath Sounds, Left: Clear and Equal Breath Sounds, Right: Clear and Equal Nausea/Vomiting: Denies RUQ Epigastric Pain: Denies Datetime: 10/08/2018 06:07 Pain Relief Measures: Comfort Measures Datetime: 10/07/2018 17:18 Actions for Decelerations: Side to Side Datetime: 10/07/2018 16:02 Pool: Negative Membrane Comments: Pt thinks she is leaking. Increased mucus discharge. Nitrazine negative.
--- NOTE | 2018-10-10 18:50 | PROVIDER PROGRESS NOTE ---
Subjective - Prog Note Date Prog Note Date: 10/10/18 Prog Note Time: 10:30 - Subjective Subjective: Deepali is PPD#2 and is doing well. No ANNE/vision change/RUQ pain Up and ambulating, tolerating po, pain well managed with minimal medications Voiding. BF going well. BP in high normal to mild range on no meds Objective - Vital Signs/Intake & Output Reviewed Vital Signs: Yes Vital Signs: Vital Signs x48h Temp Pulse Resp BP BP Pulse Ox 10/10/18 16:32 81 132/64 H 10/10/18 14:51 147/69 H 10/10/18 14:50 151/71 H 10/10/18 12:39 98.4 F 84 16 142/80 H 100 Intake & Output: Intake & Output 10/07/18 10/08/18 10/09/18 10/10/18 23:59 23:59 23:59 23:59 Intake Total 3700 Output Total 1000 1240 Balance 2700 -1240 - Objective General Appearance: positive: No acute distress Respiratory: positive: Chest non-tender, No respiratory distress Cardiovascular: positive: Regular rate & rhythm Rectal: positive: Non-tender, Other (FF below umbi) Skin: positive: Color nml Extremities: positive: Non-tender, No pedal edema Neurologic/Psychiatric: positive: Oriented x3 - Lab Results Fish Bones: 10/09/18 06:10 10/09/18 06:10 Assessment/Plan - Problem List (2) Vaginal delivery Impression: BPs remain high normal to mild range Cont to monitor If wnl, can DC home with continued home BP checks and fu in one week UPDATE: BP remain in mild range. Started on labetalol 100 mg po bid. Normalized with medications. Will return to triage tomorrow for BP check. Warning signs reviewed. Labetalol 100 mg po bid #60 provided
--- NOTE | 2018-10-10 18:57 | DISCHARGE SUMMARY ---
"Discharge Summary Admit Date: 10/07/18 Discharge Date: 10/10/18 Discharging Provider: Fe Archer MD Primary Care Provider: Arleen Tripathi CNM Condition at Discharge: Stable Discharge Disposition: 01 Home, Self Care Discharge Facility Name: [facility] - DIAGNOSES Admission Diagnoses: IUP at 38w3d Gestational hypertension Discharge Diagnoses with Status of Each Condition: Same and delivery of term gestation - CONSULTS | PROCEDURES Procedures: Induction of labor with spontaneous vaginal delivery. - HOSPITAL COURSE Hospital Course: This 23yo @ 38.3wks gestation by LMP c/w 5.6wk U/S presented to [facility] for medical induction of labor secondary to gestational hypertension on 10/07/2018. Cervix was 1/25/-3, posterior with intact membranes, in a vertex position. Pt was given 4 total doses of 50mcg BC misoprostol for effective cervical ripening. SROM occurred at 1123 and was noted to be a copious amount of clear fluid. FHR pattern demonstrated Category I pattern throughout labor. Normal labor course. Epidural placed per maternal request. Patient progressed to c/c/+2 with spontaneous urge to push at 1932. : Normal of viable female on 10/08/2018 at 1941. No nuchal cord. The was placed on maternal abdomen, stimulated, dried, and placed skin to skin. 's 7/9 at 1 and 5 min respectively. Pitocin administered via IV for hemostasis. The umbilical cord was allowed to stop pulsating at which time it was doubly clamped by CNM and cut by FOB. Cord blood was obtained. Placenta delivered spontaneously and intact at 1945. 3VC. EBL 200mL. Uterine fundus firm and there is no excessive bleeding. The perineum, vagina, and cervix were inspected and found to have a minor first degree left labial laceration which was repaired using a 3-[address]-1 needle in standard fashion under sterile conditions with one interrupted stitch. Vaginal examination following repair was done. Tissues well approximated. course complicated by mildly elevated blood pressures managed with labetalol 100 mg pox1. Discharged to home with labetalol 100 mg po bid and planb for BP check in one day and one week. - ALLERGIES Allergies/Adverse Reactions: Allergies Allergy/AdvReac Type Severity Reaction Status Date / Time adhesives AdvReac Unknown Rash Uncoded 06/18/15 13:27 coban AdvReac Unknown Uncoded 06/18/15 13:27 - MEDICATIONS Home Medications: Ambulatory Orders Medication Instructions Recorded Confirmed No Known Home Medications 01/24/18 01/24/18 - LABS Result Diagrams: 10/09/18 06:10 10/09/18 06:10 - FOLLOW UP Follow Up: 24 hours and one week."
[2018-10-11] MEDS ORDERED: LABETALOL 100 MG TABLET PO SCH (09:00)
== END 2018-10-10 17:03 | disposition home or self-care (01) | DRG 807 ==
LOC: WFO 06:26 → FBP 06:29 → WFO 07:44 → FBP 07:45 → INTOOBSV 11:33 → OBSVTOIN 11:33 → UNDODISIN 10-10 17:03
PROVIDERS: ADMIT Nurse Practitioner Obstetrics & Gynecology; ATTEND Obstetrics & Gynecology
PROC: 10E0XZZ Delivery of Products of Conception, External Approach (ICD-10-PCS; principal; 2018-10-08)
PROC: 0HQ9XZZ Repair Perineum Skin, External Approach (ICD-10-PCS; 2018-10-08)
DX: O13.4 Gestational [pregnancy-induced] hypertension without significant proteinuria, complicating childbirth (principal); Z37.0 Single live birth; Z3A.38 38 weeks gestation of pregnancy; O70.0 First degree perineal laceration during delivery; Z87.891 Personal history of nicotine dependence; O99.324 Drug use complicating childbirth; F12.90 Cannabis use, unspecified, uncomplicated; Z87.898 Personal history of other specified conditions; Z91.81 History of falling
CPT/HCPCS: 36415; 82565; 82570; 83615; 84156; 84450; 84550; 85025; A9270; G0378; G0379; J7120

== ENCOUNTER 2018-10-11 11:56 | Outpatient (CLI) | payer MEDICAID ==
[2018-10-11 12:21] VITALS: BP 129/77
--- NOTE | 2018-10-11 12:55 | Labor Flowsheet ---
Labor Flowsheet Datetime Report Generated by CPN: 10/11/2018 12:55 Datetime: 10/11/2018 12:20 VITAL SIGNS NBP Sys/Kerry/Mean (mmHg): 129 : 77 : 89 Pulse: 84 LaborFlag: Labor Datetime: 10/10/2018 08:25 SpO2 (%): 100 Datetime: 10/08/2018 19:51 Temperature (C): 37.5 Datetime: 10/08/2018 19:45 Stage 2 Comments: Spontaneous placenta del @ 1945, visually intact. Routine discard Datetime: 10/08/2018 19:41 ASSESSMENT A Monitor Mode: Telemetry FHR Baseline Rate : 145 Variability: Moderate 6-25 bpm Accelerations: 15X15 Comments: heart tones ranging from 80s up to 180s. Oxygen Method: Room Air Datetime: 10/08/2018 19:34 VAGINAL EXAM Dilatation (cm): 10.0 Exam by: Bhumi Vaginal Exam Comments: complete STAGE 2 Pushing: Coached on Pushing; Urge to Push Pushing Position: Pushing with Contractions; Pushing Right Side; Pushing Lithotomy Pushing Progress: Descent with Pushing; Pushing Effectively with Contractions Datetime: 10/08/2018 19:33 Patient Care Comments: 200 ml UO Datetime: 10/08/2018 19:30 UTERINE ACTIVITY Monitor Mode: External Frequency (min): 2-3 Quality: Strong Duration (sec): 80-120 Pattern: Normal: <= 5 Contractions in 10 Minutes Resting Tone (Palpate): Relaxed Category: Category I COMMUNICATION Communication: Provider at Bedside Communication Comments: Bhumi here Datetime: 10/08/2018 19:25 Station: 2 Datetime: 10/08/2018 19:15 Contraction Comments: wanting to push Provider Notified (Name): Bhumi CNM Datetime: 10/08/2018 19:12 Decelerations: Prolonged Datetime: 10/08/2018 18:56 Epidural Procedure Other: Redose Datetime: 10/08/2018 18:50 Effacement (%): 90 Anesthesia Comments: Min Reza FINISHING PAN OPERATOR here Datetime: 10/08/2018 18:33 Vaginal Bleeding: Normal Show Cervix, Consistency: Soft Cervix, Position: Anterior Datetime: 10/08/2018 18:00 ANESTHESIA Anesthesia Plans: Epidural Anesthesia Level Check: T12 Datetime: 10/08/2018 17:45 Monitor Interventions for UA: [place] Adjusted Datetime: 10/08/2018 17:35 PATIENT CARE IV/Blood Work: New IV Bag Hung; IV Bag Number @ 2 Datetime: 10/08/2018 16:48 Respirations: 20 Patient Position/Activity: Left Lateral Datetime: 10/08/2018 16:46 Monitor Interventions for FHR: Ultrasound Adjusted Datetime: 10/08/2018 16:43 Hygiene: Giana Care; Underpad Changed Datetime: 10/08/2018 16:30 Pitocin Checklist: At Least 1 Acceleration of 15 bpm x 15 Seconds in 30 Minutes or Adequate Variabi lity; No More than 5 Uterine Contractions in 10 Minutes for any 20 Minute Interval; Uterus Palpates S oft between Contractions Datetime: 10/08/2018 15:37 I/O Interventions: Varela Cath Inserted Datetime: 10/08/2018 14:23 Epidural Positioning: Sitting Epidural Procedure: Cath Placed Datetime: 10/08/2018 14:09 PROCEDURE TIME OUT Procedure Verify: Correct Patient Identity; Accurate Procedure Consent Form; Agreement on Procedure to be Done; Correct Patient Position Datetime: 10/08/2018 13:54 Stage of : Labor Provider Reviewed Strip: Yes Notification Reason: Status Update Datetime: 10/08/2018 13:03 MEDICATIONS Analgesics/Sedatives: Fentanyl (mcg) @ 50 Datetime: 10/08/2018 12:18 PAIN Pain Scale: 8 Pain Presence: Intermittent Pain Type: Burning Pain Location: Abdomen; Back Pain Coping: Breathing Through Contractions Pain Assessment Comments: Trying for a non-medicated labor Comfort Measures: Breathing/Relaxation Datetime: 10/08/2018 11:23 Membrane Status: Ruptured Membranes Rupture Method: Spontaneous Amniotic Fluid Color: Clear Amniotic Fluid Amount: Copious Amniotic Fluid Odor: Normal Datetime: 10/08/2018 10:05 Cervical Ripening Agents: Cytotec @ Datetime: 10/08/2018 09:30 FHR Baseline Changes: No Baseline Change Datetime: 10/08/2018 07:52 MATERNAL ASSESSMENT Level of Consciousness: Fully Conscious DTR's/Clonus: DTRs 3+; No Clonus Headache: Denies Breath Sounds, Left: Clear and Equal Breath Sounds, Right: Clear and Equal Nausea/Vomiting: Denies RUQ Epigastric Pain: Denies Datetime: 10/08/2018 06:07 Pain Relief Measures: Comfort Measures Datetime: 10/07/2018 17:18 Actions for Decelerations: Side to Side Datetime: 10/07/2018 16:02 Pool: Negative Membrane Comments: Pt thinks she is leaking. Increased mucus discharge. Nitrazine negative.
== END 2018-10-11 12:45 | disposition home or self-care (01) ==
LOC: WFO 11:56 → FBP 11:59 → WFO 12:45
PROVIDERS: ATTEND Obstetrics & Gynecology
DX: Z53.9 Procedure and treatment not carried out, unspecified reason (principal)

== ENCOUNTER 2018-11-14 11:47 | Emergency (ER) | payer MEDICAID ==
[2018-11-14 12:20] LABS: BASOPHILS % (AUTO) 0.4 %; EOSINOPHILS # (AUTO) 0.1 10^3/uL (0.0-0.7); EOSINOPHILS % (AUTO) 1.9 %; LYMPHOCYTES # (AUTO) 1.8 10^3/uL (1.5-3.5); LYMPHOCYTES % (AUTO) 27.1 %; MEAN CORPUSCULAR HEMOGLOBIN 31.4 pg (27.0-31.0); MEAN CORPUSCULAR VOLUME 92.3 fL (81.0-99.0); MEAN PLATELET VOLUME 9.6 fL (7.9-10.8); MONOCYTES # (AUTO) 0.5 10^3/uL (0.0-1.0); MONOCYTES % (AUTO) 7.4 %; NEUTROPHILS # (AUTO) 4.3 10^3/uL (1.5-6.6); NEUTROPHILS % (AUTO) 63.1 %; PLT - PLATELET COUNT 248 10^3/uL (130-450); RED BLOOD COUNT 4.14 10^6/uL (4.20-5.40); RED CELL DISTRIBUTION WIDTH 12.4 % (12.0-15.0); WHITE BLOOD COUNT 6.8 x10^3/uL (4.8-10.8)
[2018-11-14 12:26] LABS: BILIRUBIN,URINE NEGATIVE (NEGATIVE); GLUCOSE, URINE (UA) NEGATIVE (NEGATIVE); KETONES,URINE (UA) NEGATIVE (NEGATIVE); LEUKOCYTE ESTERASE, URINE NEGATIVE (NEGATIVE); NITRITE,URINE NEGATIVE (NEGATIVE); OCCULT BLOOD,URINE LARGE (NEGATIVE); PROTEIN,URINE 30 mg/dL (NEGATIVE); UROBILINOGEN,URINE 0.2 (NORMAL) E.U./dL (NORMAL)
--- NOTE | 2018-11-14 12:35 | ED Physician Documentation ---
PD HPI ABD PAIN - Stated complaint Stated Complaint: FEMALE - Chief complaint Chief Complaint: Abd Pain - History obtained from History obtained from: Patient - History of Present Illness Timing - onset: Other (23-year-old G1, P1 about a month from vaginal delivery that was uncomplicated except for some -induced hypertension. She is half breast-feeding half bottlefeeding. Started her first menses since delivering the other day and now has a lot of bleeding with clots, going through 1 pad every hour to half an hour. No significant cramping or pain.) Review of Systems Constitutional: reports: Reviewed and negative Throat: reports: Reviewed and negative Cardiac: reports: Reviewed and negative Respiratory: reports: Reviewed and negative PD PAST MEDICAL HISTORY - Past Medical History Cardiovascular: Hypertension Respiratory: None Neuro: Seizure disorder Endocrine/Autoimmune: None GI: GERD : None Psych: Depression, Anxiety, ADD/ADHD, Post traumatic stress disorder Musculoskeletal: None Derm: Eczema - Past Surgical History Past Surgical History: Yes HEENT: Tonsil/Adenoidectomy - Present Medications Home Medications: Ambulatory Orders Medication Instructions Recorded Confirmed No Known Home Medications 01/24/18 01/24/18 - Allergies Allergies/Adverse Reactions: Allergies Allergy/AdvReac Type Severity Reaction Status Date / Time adhesives AdvReac Unknown Rash Uncoded 11/14/18 11:51 coban AdvReac Unknown Uncoded 11/14/18 11:51 - Social History Does the pt smoke?: Yes Smoking Status: Current every day smoker Does the pt drink ETOH?: No Does the pt have substance abuse?: No - Immunizations Immunizations are current?: Yes - POLST Patient has POLST: No PD ED PE NORMAL - Vitals Vital signs reviewed: Yes - General General: Alert and oriented X 3, No acute distress - Abdomen Abdomen: Soft, Non tender - Female Female : Auto Damage Adjuster present (Bekah Hamm RN), Other (Modest amount of dark blood in the vault, at most a very slow ooze from the cervix which is closed.) - Derm Derm: Normal color, Warm and dry - Neuro Neuro: Alert and oriented X 3, Normal speech Results - Vitals Vitals: Vital Signs - 24 hr 11/14/18 11/14/18 11/14/18 11:51 12:39 14:31 Temperature 36.5 C Heart Rate 74 71 78 Respiratory 16 18 18 Rate Blood Pressure 144/77 H 116/73 118/78 O2 Saturation 98 98 98 Oxygen O2 Source Room air - Labs Labs: Laboratory Tests 11/14/18 11/14/18 11/14/18 12:04 12:15 12:15 WBC 6.8 RBC 4.14 L Hgb 13.0 Hct 38.2 MCV 92.3 MCH 31.4 H MCHC 34.0 RDW 12.4 Plt Count 248 MPV 9.6 Neut # (Auto) 4.3 Lymph # (Auto) 1.8 [place] # (Auto) 0.5 Eos # (Auto) 0.1 Baso # (Auto) 0.0 Absolute Nucleated RBC 0.00 Nucleated RBC % 0.0 Sodium 139 Potassium 4.0 Chloride 105 Carbon Dioxide 25 Anion Gap 9.0 BUN 11 Creatinine 0.6 Estimated GFR (MDRD) 125 Glucose 97 Calcium 9.3 Total Bilirubin 0.3 AST 15 ALT 18 Alkaline Phosphatase 78 Total Protein 7.3 Albumin 4.1 Globulin 3.2 Albumin/Globulin Ratio 1.3 Lipase 22 Urine Color RED/BLOODY Urine Clarity SL Urine pH 7.0 Ur Specific [place] 1.020 Urine Protein 30 H Urine Glucose (UA) NEGATIVE Urine Ketones NEGATIVE Urine Occult Blood LARGE H Urine Nitrite NEGATIVE Urine Bilirubin NEGATIVE Urine Urobilinogen 0.2 (NORMAL) Ur Leukocyte Esterase NEGATIVE Urine RBC TNTC H Urine WBC 0-3 Ur Squamous Epith Cells NONE SEEN Urine Bacteria None Seen Ur Microscopic Review INDICATED Urine Culture Comments NOT INDICATED Urine HCG, Qual NEGATIVE - Rads (name of study) Pelvic sono Radiology: EMP read contemporaneously (Hypervascular uterus, no obvious retained products of conception) PD MEDICAL DECISION MAKING - ED course ED course: 23-year-old woman presents with her first menses which is much heavier than usual. Her hemodynamics and H&H are reassuring. Spoke with on- call OB, Dr. Archer. Recommended Provera if bleeding was not too much. Departure - Departure Disposition: 01 Home, Self Care Clinical Impression: Vaginal bleeding Condition: Good Record reviewed to determine appropriate education?: Yes Instructions: ED Bleed Irregular Vaginal Comments: We expect the bleeding to stop pretty quickly after the hormones he took here. If it continues or worsens or you start to feel bad please return immediately for reevaluation. 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
[2018-11-14 12:36] LABS: HCG UR QUAL NEGATIVE
[2018-11-14 12:37] LABS: CLARITY,URINE SL (CLEAR)
[2018-11-14 12:42] LABS: BACTERIA,URINE None Seen /HPF (None Seen); RBC,URINE TNTC /HPF (0-5); SQUAMOUS EPITHELIAL CELL,UR NONE SEEN (<= Few)
[2018-11-14 12:48] LABS: ALBUMIN 4.1 g/dL (3.2-5.5); ALBUMIN/GLOBULIN RATIO 1.3 (1.0-2.2); BILIRUBIN,TOTAL 0.3 mg/dL (0.2-1.0); CALCIUM 9.3 mg/dL (8.5-10.3); CREATININE 0.6 mg/dL (0.4-1.0); TOTAL PROTEIN 7.3 g/dL (6.7-8.2)
--- NOTE | 2018-11-14 15:08 | Ultrasound Report ---
Reason: Post bleeding, eval for POC Procedure Date: 11/14/2018 Accession Number: [id number] / [id number] Procedure: US - Pelvic Complete CPT Code: FULL RESULT: EXAM: PELVIC ULTRASOUND EXAM DATE: 11/14/2018 02:36 PM. CLINICAL HISTORY: Post bleeding, evaluate for POC. COMPARISON: None. TECHNIQUE: Realtime transabdominal pelvic scan performed to identify the uterus and adnexa and as an overview of other pelvic structures, followed by transvaginal scan to provide greater detail of the uterus and adnexa, with static image documentation. FINDINGS: Uterus: 9.4 x 4.4 x 5.6 cm, volume 122 cc. Anteverted position. Overall prominent size with expected echotexture. The uterus appears globally mildly hypervascular by color Doppler. Masses: No discrete mass is seen. Endometrium: 5 mm. Freely moving content is seen within the endometrium. No stationary mass or polyp or tissue is identified and no feeding vessel is identified going towards or into the endometrium. Cervix: Unremarkable. Right Ovary: 3.1 x 1.9 x 1.5 cm, volume 4.6 cc. Normal echotexture and blood flow. Left Ovary: 2.9 x 1.3 x 2.6 cm, volume 5.2 cc. Normal echotexture and blood flow. Free Fluid: A small amount of free fluid is seen within the cul-de-sac. Other: None. IMPRESSION: Globally hypervascular uterus with freely moving endometrial content, most consistent with ongoing bleeding and hypervascular uterus. A definite retained soft tissue component or feeding vessel is not identified within the endometrium. Small amount of free fluid within the cul-de-sac. RADIA
[2018-11-14 15:53] VITALS: BP 123/75
== END 2018-11-14 15:53 | disposition home or self-care (01) ==
LOC: ED 11:47
DX: O99.89 Other specified diseases and conditions complicating pregnancy, childbirth and the puerperium (principal); N92.0 Excessive and frequent menstruation with regular cycle; O99.335 Smoking (tobacco) complicating the puerperium
CPT/HCPCS: 36415; 76830; 76856; 80053; 81001; 81025; 83690; 85025; 99283; 99284; A9270; 81003; 87086

== ENCOUNTER 2019-06-02 08:00 | Outpatient (CLI) | payer MEDICAID ==
[2019-06-02 21:26] LABS: CANDIDA GROUP DNA NEGATIVE (NEGATIVE); CANDIDA KRUSEI DNA NEGATIVE (NEGATIVE); TRICHOMONAS VAGINALIS DNA NEGATIVE (NEGATIVE)
== END 2019-06-02 23:59 | disposition home or self-care (01) ==
LOC: LAB.R 08:00
PROVIDERS: ATTEND Advanced Practice Midwife
DX: N89.8 Other specified noninflammatory disorders of vagina (principal)
CPT/HCPCS: 87661; 87801

== ENCOUNTER 2019-06-06 10:26 | Outpatient (CLI) | payer MEDICAID ==
--- NOTE | 2019-06-06 18:42 | Ultrasound Report ---
Reason: PREGANANCY TEST POSITIVE Procedure Date: 06/06/2019 Accession Number: [id number] / [id number] Procedure: US - OB First Trimester CPT Code: Final Report FULL RESULT: EXAM: FIRST TRIMESTER OBSTETRIC ULTRASOUND (Less than 11 weeks) EXAM DATE: 06/06/2019 12:00 PM. CLINICAL HISTORY: Positive test. G5, P1. Hyperemesis. LMP: 04/24/2019. COMPARISONS: None. TECHNIQUE: Transabdominal and transvaginal ultrasound examination with static image documentation. CLINICAL DATES: EGA 6 weeks, 1 day with ELIZABETH 01/29/2020 based on LMP. ASSESSMENT: Gestational Sac: Intrauterine thick-walled cystic structure present with adjacent decidual reaction. Mean gestational sac diameter: 4 mm = 5 weeks, 1 day. Embryo: CRL (crown-rump length) not visualized. Cardiac activity: Not present. Yolk sac: Not visualized. Amniotic fluid: Not accurately assessed at this gestational age. Early placenta: Not visible at this gestational age. Other: No perigestational fluid collection demonstrated. MATERNAL STRUCTURES: Uterus: Anteverted. Thickened endometrium. Cervix: Closed. Right Ovary/Adnexa: The ovary measures 3.1 x 1.2 x 2.0 cm, volume 3.9 cc. Unremarkable. Left Ovary/Adnexa: The ovary measures 3 x 2.7 x 2.1 cm, volume 9 cc. Complex 2.1 x 1.6 x 1.9 cm lesion is seen with peripheral vascularity typically seen with a corpus luteal cyst. Free Fluid: Small volume of free fluid largely in the right adnexa and cul-de-sac. Other: None. IMPRESSION: 1. Intrauterine gestational sac at an EGA 5 weeks, 1 day with ELIZABETH 02/05/2020 based on gestational sac size, which compares with a gestational age of 6 weeks, 1 day based on reported LMP. No yolk sac or embryo is identified although may not yet be identified at this sac size. No secondary findings of ectopic are identified. Therefore continued correlation with serial serum beta hCG and follow-up ultrasound is recommended in 14 days for reassessment. 2. Normal ovaries with a left ovarian lesion measuring 2.1 cm, most consistent with a corpus luteal cyst. RADIA
== END 2019-06-06 10:27 | disposition home or self-care (01) ==
LOC: DI 10:26
PROVIDERS: ATTEND Advanced Practice Midwife
DX: O34.81 Maternal care for other abnormalities of pelvic organs, first trimester (principal); N83.9 Noninflammatory disorder of ovary, fallopian tube and broad ligament, unspecified; Z3A.01 Less than 8 weeks gestation of pregnancy
CPT/HCPCS: 76801

== ENCOUNTER 2019-06-17 13:55 | Outpatient (CLI) | payer MEDICAID ==
--- NOTE | 2019-06-17 15:58 | Ultrasound Report ---
Reason: POSITIVE TEST Procedure Date: 06/17/2019 Accession Number: [id number] / [id number] Procedure: US - OB First Trimester CPT Code: Final Report FULL RESULT: EXAM: FIRST TRIMESTER OBSTETRIC ULTRASOUND (Less than 11 weeks) EXAM DATE: 06/17/2019 02:40 PM. CLINICAL HISTORY: POSITIVE TEST. LMP: Unknown. COMPARISONS: OB FIRST TRIMESTER 06/06/2019 11:36 AM. TECHNIQUE: Transabdominal and transvaginal ultrasound examination with static image documentation. CLINICAL DATES: EGA 7 weeks 5 days with ELIZABETH 01/29/2020 based on LMP . ASSESSMENT: Gestational Sac: Single intrauterine. Mean gestational sac diameter: 26 mm = 7 weeks 4 days. Embryo: No pole Yolk sac: Possible yolk sac 4 mm. Amniotic fluid: Not accurately assessed at this gestational age. Early placenta: Not visible at this gestational age. Other: 5 x 3 mm and 2 x 3 mm perigestational fluid collectionS demonstrated. MATERNAL STRUCTURES: Uterus: Anteverted . Unremarkable. Cervix: Closed. Right Ovary/Adnexa: The ovary measures 2.6 x 1.3 x 2.1 cm, volume 3.5 cc. Unremarkable. Left Ovary/Adnexa: The ovary measures 3.2 x 2.3 x 3.5 cm, volume 13.3 cc. 2.5 x 1.1 0.8 cm corpus pseudocyst. Free Fluid: None. Other: None. IMPRESSION: 1. failure. Mean gestational sac diameter of 26 mm and no embryo. . RADIA
== END 2019-06-17 13:56 | disposition home or self-care (01) ==
LOC: DI 13:55
PROVIDERS: ATTEND Advanced Practice Midwife
DX: O03.9 Complete or unspecified spontaneous abortion without complication (principal)
CPT/HCPCS: 76801; 76817

== ENCOUNTER 2019-06-18 20:23 | Emergency (ER) | payer MEDICAID ==
[2019-06-18 20:38] VITALS: BP 127/71
[2019-06-18] MEDS ORDERED: ONDANSETRON ODT 4 MG TABLET TL STA (20:52)
[2019-06-18] MEDS ORDERED: IBUPROFEN 600 MG TABLET PO STA (20:52)
--- NOTE | 2019-06-18 20:57 | ED Physician Documentation ---
PD HPI FEMALE - Stated complaint Stated Complaint: VOMITING,ABD CRAMPING - Chief complaint Chief Complaint: Abd Pain - History obtained from History obtained from: Patient (Pt is a 24 yo F, who suffered a spontaneous miscarriage 1 week ago. She passed some blood and tissue and followed up w/ OB yesterday and had an ultrasound which indicated she has a single non-viable intrauterine gestational sac. She was advised to follow up tomorrow 06/18 w/ OB for medication vs D&C if she did not pass the tissue. She has not had any bleeding, but began to have generalized abdominal, pelvic, and lower back soreness and cramping last night which persisted today. She's felt hot and cold, but did not take temperature. She's been nauseated and vomited on a few occasions, but has been able to tolerate oral fluids. She has not attempted any medication for the discomfort including tylenol or motrin. No dysuria or vaginal discharge.) Review of Systems Constitutional: reports: Reviewed and negative Cardiac: reports: Reviewed and negative Respiratory: reports: Reviewed and negative GI: reports: Abdominal Pain, Nausea, Vomiting. denies: Abdominal Swelling, Constipation, Diarrhea, Hematemesis, Bloody / black stool : denies: Dysuria, Frequency, Hesitancy, Hematuria, Discharge, Vaginal bleeding Musculoskeletal: reports: Reviewed and negative PD PAST MEDICAL HISTORY - Past Medical History Past Medical History: Yes Cardiovascular: Hypertension Respiratory: None Neuro: Seizure disorder Endocrine/Autoimmune: None GI: GERD : None Psych: Depression, Anxiety, ADD/ADHD, Post traumatic stress disorder Musculoskeletal: None Derm: Eczema - Past Surgical History Past Surgical History: Yes HEENT: Tonsil/Adenoidectomy - Present Medications Home Medications: Ambulatory Orders Medication Instructions Recorded Confirmed Ibuprofen [Motrin] 800 mg PO Q8H PRN #30 tablet 06/18/19 Ondansetron Odt [Zofran] 4 mg TL Q6H PRN #10 tablet 06/18/19 - Allergies Allergies/Adverse Reactions: Allergies Allergy/AdvReac Type Severity Reaction Status Date / Time adhesives AdvReac Unknown Rash Uncoded 06/18/19 20:37 coban AdvReac Unknown Uncoded 06/18/19 20:37 - Social History Does the pt smoke?: Yes Smoking Status: Current every day smoker Does the pt drink ETOH?: No Does the pt have substance abuse?: No - Immunizations Immunizations are current?: Yes - POLST Patient has POLST: No PD ED PE NORMAL - Vitals Vital signs reviewed: Yes - General General: Alert and oriented X 3, No acute distress, Well developed/nourished - HEENT HEENT: Atraumatic, Moist mucous membranes - Cardiac Cardiac: RRR, No murmur, No gallop, No rub, Strong equal pulses - Respiratory Respiratory: No respiratory distress, Clear bilaterally - Abdomen Abdomen: Normal bowel sounds, Non distended, Other (generalized ttp and suprapubic ttp, no guarding. ) - Female Female : Deferred (deferred as pt had an exam yesterday w/ pelvic US and has appt w/ ) Results - Vitals Vitals: Vital Signs - 24 hr 06/18/19 20:33 Temperature 36.8 C Heart Rate 92 Respiratory 16 Rate Blood Pressure 127/71 O2 Saturation 97 Oxygen O2 Source Room air - Labs Labs: Laboratory Tests 06/18/19 20:40 Urine Color YELLOW Urine Clarity CLEAR Urine pH 6.0 Ur Specific [place] >=1.030 H Urine Protein NEGATIVE Urine Glucose (UA) NEGATIVE Urine Ketones NEGATIVE Urine Occult Blood NEGATIVE Urine Nitrite NEGATIVE Urine Bilirubin NEGATIVE Urine Urobilinogen 0.2 (NORMAL) Ur Leukocyte Esterase SMALL H Urine RBC None Seen Urine WBC 0-3 Ur Squamous Epith Cells MANY Squamous H Urine Bacteria Rare Ur Microscopic Review INDICATED Urine Culture Comments NOT INDICATED Urine HCG, Qual Cancelled PD MEDICAL DECISION MAKING - ED course Complexity details: reviewed results, re-evaluated patient, considered differential, d/w patient ED course: Pt sustained a spontaneous miscarriage about a week ago. She has retained sac. She has some abdominal cramping and nausea/vomiting which is not uncommon during this process. She has no vaginal bleeding and no fever. She is hemodynamically stable. I deferred a vaginal exam as she had one yesterday as well as ultrasound and she is not currently bleeding, therefore suspect retained sac. She has follow up with OB tomorrow at 11am which time they can decide to pursue medication vs D&C. She is stable for discharge home as there are no signs of infection. Symptoms improved with zofran and ibuprofen, may continue prn at home. Return precautions discussed. Departure - Departure Disposition: 01 Home, Self Care Clinical Impression: Retained products of conception after miscarriage Vomiting Qualifiers: Vomiting type: unspecified Vomiting Intractability: non-intractable Nausea presence: with nausea Qualified Code(s): R11.2 - Nausea with vomiting, unspecified Condition: Good Instructions: ED Nausea Vomiting Prescriptions: Ibuprofen [Motrin] 800 mg PO Q8H PRN #30 tablet PRN Reason: PAIN &/OR FEVER Ondansetron Odt [Zofran] 4 mg TL Q6H PRN #10 tablet PRN Reason: Nausea / Vomiting Comments: Please follow up tomorrow with your OB as scheduled to discussed miscarriage with retained tissue. They will likely discuss using medication or a procedure called a D&C to help remove the additional tissue. You have no signs of in fection such as fever or abnormal vital signs. You may manage the cramping with ibuprofen and may take zofran as needed for nausea/vomiting. Return if you have vaginal bleeding > 1 pad/hour x 2 hour or more, or you develop fever and shaking chills.
[2019-06-18 20:58] LABS: BILIRUBIN,URINE NEGATIVE (NEGATIVE); GLUCOSE, URINE (UA) NEGATIVE (NEGATIVE); KETONES,URINE (UA) NEGATIVE (NEGATIVE); LEUKOCYTE ESTERASE, URINE SMALL (NEGATIVE); NITRITE,URINE NEGATIVE (NEGATIVE); OCCULT BLOOD,URINE NEGATIVE (NEGATIVE); PROTEIN,URINE NEGATIVE (NEGATIVE); UROBILINOGEN,URINE 0.2 (NORMAL) E.U./dL (NORMAL)
[2019-06-18 20:59] LABS: CLARITY,URINE CLEAR (CLEAR)
[2019-06-18 21:13] LABS: BACTERIA,URINE Rare /HPF (None Seen); RBC,URINE None Seen /HPF (0-5); SQUAMOUS EPITHELIAL CELL,UR MANY Squamous (<= Few)
== END 2019-06-18 21:24 | disposition home or self-care (01) ==
LOC: ED 20:23
DX: O03.4 Incomplete spontaneous abortion without complication (principal); I10 Essential (primary) hypertension; F17.200 Nicotine dependence, unspecified, uncomplicated
CPT/HCPCS: 36415; 81001; 84702; 99283; 99284; A9270; Q0162; 81003; 81025; 87086

== ENCOUNTER 2019-07-12 10:46 | Outpatient (CLI) | payer MEDICAID ==
--- NOTE | 2019-07-12 17:05 | Ultrasound Report ---
Reason: ,SPNT Procedure Date: 07/12/2019 Accession Number: [id number] / [id number] Procedure: US - Pelvic w/Transvaginal CPT Code: Final Report FULL RESULT: EXAM: PELVIC ULTRASOUND EXAM DATE: 07/12/2019 11:42 AM. CLINICAL HISTORY: , spontaneous. COMPARISON: None. TECHNIQUE: Realtime transabdominal pelvic scan performed to identify the uterus and adnexa and as an overview of other pelvic structures, followed by transvaginal scan to provide greater detail of the uterus and adnexa, with static image documentation. FINDINGS: Uterus: 7.9 x 4.3 x 5.4 cm, volume 95.3 cc. Anteverted position. Normal overall size and echotexture. Masses: None. Endometrium: 11 mm. Mobile endometrial contents are noted. No focal mass or thickening. No abnormal vascularity in the endometrial contents. Cervix: Trace fluid noted in the endocervix. Nabothian cyst. No mass. Right Ovary: 2.9 x 1.8 x 1.7 cm, volume 4.6 cc. Normal echotexture and blood flow. Left Ovary: 3.5 x 3.2 x 2.8 cm, volume 16.7 cc. Normal echotexture and blood flow. Anechoic left ovarian follicle measures 2.8 x 2.2 x 2.3 cm. No wall irregularities, mural nodules or thickened septations. No imaging follow-up is recommended per consensus recommendation based on imaging criteria. Free Fluid: Trace free fluid noted in the cul-de-sac. Other: None. IMPRESSION: 1. Mobile echogenic endometrial contents probably represent blood products. No focal mass, polyp or abnormal blood flow to suggest retained products of conception. 2. No uterine fibroid. 3. 2.8 cm left ovarian follicle. Otherwise, normal bilateral ovaries and adnexa. RADIA
== END 2019-07-12 10:47 | disposition home or self-care (01) ==
LOC: DI 10:46
PROVIDERS: ATTEND Advanced Practice Midwife
DX: O03.9 Complete or unspecified spontaneous abortion without complication (principal)
CPT/HCPCS: 76830; 76856

== ENCOUNTER 2019-07-17 13:13 | Outpatient (CLI) | payer MEDICAID | END 2019-07-17 23:59 | disposition home or self-care (01) | LOC: LAB.WCP 13:13 | PROVIDERS: ATTEND Advanced Practice Midwife | DX: Z32.01 Encounter for pregnancy test, result positive (principal) | CPT/HCPCS: 36415; 84702 ==

== ENCOUNTER 2019-12-30 16:29 | Emergency (ER) | payer MEDICAID ==
[2019-12-30] MEDS ORDERED: predniSONE 20 MG TABLET PO STA (19:03)
--- NOTE | 2019-12-30 19:07 | ED Physician Documentation ---
History of Present Illness - Stated complaint Stated Complaint: BODY PX - Chief complaint Chief Complaint: General - History obtained from History obtained from: Patient - Additonal information Additional information: PT comes to the ED, complaining of worsening pain throughout her whole body, including muscles and joints, for the past year. She states she doesn't have a PCP and has not been able to get established with one, due to COVID, so she has not been seen for this. She states she called a clinic today to make an appointment, and they told her she should just come to the ER to "get the ball rolling". Pt denies fevers. Family h/o fibromyalgia in mom and sister. No RA or SLE. Review of Systems Ten Systems: 10 systems reviewed and negative Constitutional: reports: Reviewed and negative Eyes: reports: Reviewed and negative Ears: reports: Reviewed and negative Nose: reports: Reviewed and negative Throat: reports: Reviewed and negative Cardiac: reports: Reviewed and negative Respiratory: reports: Reviewed and negative GI: reports: Reviewed and negative : reports: Reviewed and negative Skin: reports: Reviewed and negative Musculoskeletal: reports: Reviewed and negative Neurologic: reports: Reviewed and negative Psychiatric: reports: Reviewed and negative Endocrine: reports: Reviewed and negative Immunocompromised: reports: Reviewed and negative PD PAST MEDICAL HISTORY - Past Medical History Cardiovascular: Hypertension Respiratory: None Neuro: Seizure disorder Endocrine/Autoimmune: None GI: GERD : None Psych: Depression, Anxiety, ADD/ADHD, Post traumatic stress disorder Musculoskeletal: None Derm: Eczema - Past Surgical History Past Surgical History: Yes HEENT: Tonsil/Adenoidectomy - Present Medications Home Medications: Ambulatory Orders Medication Instructions Recorded Confirmed Ibuprofen [Motrin] 800 mg PO Q8H PRN #30 tablet 06/18/19 Ondansetron Odt [Zofran] 4 mg TL Q6H PRN #10 tablet 06/18/19 DULoxetine [Cymbalta] 30 mg PO DAILY #30 capsule 12/30/19 HYDROcod/ACETAM 5/325 [[place] 5/325] 1 - 2 ea PO Q6H PRN #15 tablet 12/30/19 predniSONE [Deltasone] 40 mg PO DAILY 5 Days tablet 12/30/19 - Allergies Allergies/Adverse Reactions: Allergies Allergy/AdvReac Type Severity Reaction Status Date / Time adhesives AdvReac Unknown Rash Uncoded 12/30/19 16:58 coban AdvReac Unknown Uncoded 12/30/19 16:58 - Social History Does the pt smoke?: No Smoking Status: Former smoker Does the pt drink ETOH?: Yes Does the pt have substance abuse?: No Substance Use and Type: Marijuana, CBD oil / Products - Immunizations Immunizations are current?: Yes - POLST Patient has POLST: No PD ED PE NORMAL - Vitals Vital signs reviewed: Yes - General General: Alert and oriented X 3, No acute distress - HEENT HEENT: Atraumatic, PERRL, EOMI, Moist mucous membranes - Neck Neck: Supple, no meningeal sign - Cardiac Cardiac: RRR, No murmur - Respiratory Respiratory: No respiratory distress, Clear bilaterally - Abdomen Abdomen: Soft, Non tender, Non distended - Derm Derm: Normal color, Warm and dry, No rash - Extremities Extremities: No deformity, No edema, No calf tenderness / cord, Other (diffuse TTP, without swelling or deformity of joints.) - Neuro Neuro: Alert and oriented X 3, Other (Grossly normal) - Psych Psych: Normal mood, Normal affect Results - Vitals Vitals: Vital Signs - 24 hr 12/30/19 12/30/19 16:53 19:19 Temperature 36.8 C 36.4 C L Heart Rate 79 63 Respiratory 14 16 Rate Blood Pressure 127/74 119/69 O2 Saturation 99 97 Oxygen O2 Source Room air PD MEDICAL DECISION MAKING - ED course Complexity details: considered differential, d/w patient ED course: I d/w pt that she needs to f/u as an outpatient for these long-standing sx. No emergent work-up is indicated today. I have given pt short-term symptomatic treatment. We have discussed the usual indications for return. Departure - Departure Disposition: 01 Home, Self Care Clinical Impression: Whole body pain Condition: Stable Instructions: Fibromyalgia, Fibromyalgia Manage, ED Muscle Aching Follow-Up: Connor Sahni MD [Credentialed Staff Provider] - Prescriptions: DULoxetine [Cymbalta] 30 mg PO DAILY #30 capsule predniSONE [Deltasone] 40 mg PO DAILY 5 Days tablet HYDROcod/ACETAM 5/325 [[place] 5/325] 1 - 2 ea PO Q6H PRN #15 tablet PRN Reason: Pain Discharge Date/Time: 12/30/19 19:27
[2019-12-30 19:21] VITALS: BP 119/69
== END 2019-12-30 19:27 | disposition home or self-care (01) ==
LOC: ED 16:29
DX: M79.10 Myalgia, unspecified site (principal); I10 Essential (primary) hypertension; Z87.891 Personal history of nicotine dependence
CPT/HCPCS: 99283; J7512

== ENCOUNTER 2020-05-14 08:00 | Outpatient (CLI) | payer BC, MEDICAID ==
[2020-05-14 15:53] LABS: MUDS CUTOFF CONCENTRATIONS CUTOFF CONC BELOW:
[2020-05-14 16:11] LABS: BILIRUBIN,URINE NEGATIVE (NEGATIVE); GLUCOSE, URINE (UA) NEGATIVE (NEGATIVE); KETONES,URINE (UA) NEGATIVE (NEGATIVE); LEUKOCYTE ESTERASE, URINE NEGATIVE (NEGATIVE); NITRITE,URINE NEGATIVE (NEGATIVE); OCCULT BLOOD,URINE NEGATIVE (NEGATIVE); PROTEIN,URINE NEGATIVE (NEGATIVE); UROBILINOGEN,URINE 0.2 (NORMAL) E.U./dL (NORMAL)
[2020-05-14 16:19] LABS: CLARITY,URINE CLEAR (CLEAR)
[2020-05-14 16:28] LABS: BACTERIA,URINE Few /HPF (None Seen); MUCUS,URINE Few Strands; RBC,URINE None Seen /HPF (0-5); SQUAMOUS EPITHELIAL CELL,UR MOD Squamous (<= Few); WBC,URINE 0-3 /HPF (0-5)
[2020-05-14 16:30] LABS: AMPHETAMINE SCREEN,URINE NEGATIVE (NEGATIVE); BARBITURATE SCREEN,UR NEGATIVE (NEGATIVE); BENZODIAZEPINES SCREEN, URINE NEGATIVE (NEGATIVE); COCAINE SCREEN URINE NEGATIVE (NEGATIVE); METHADONE SCREEN, URINE NEGATIVE (NEGATIVE); METHAMPHETAMINES SCREEN, URINE NEGATIVE (NEGATIVE); OPIATE SCREEN, URINE NEGATIVE (NEGATIVE); OXYCODONE SCREEN, URINE NEGATIVE (NEGATIVE); PROPOXYPHENE SCREEN, URINE NEGATIVE (NEGATIVE); THC CANNABINOID SCREEN, URINE POSITIVE (NEGATIVE); TRICYCLIC ANTIDEPRESSANT,URINE NEGATIVE (NEGATIVE)
== END 2020-05-14 23:59 | disposition home or self-care (01) ==
LOC: LAB.R 08:00
PROVIDERS: ATTEND Obstetrics & Gynecology
DX: Z32.01 Encounter for pregnancy test, result positive (principal)
CPT/HCPCS: 80306; 81001; 87086

== ENCOUNTER 2020-05-23 14:08 | Outpatient (CLI) | payer OTHER, MEDICAID ==
--- NOTE | 2020-05-23 16:19 | Ultrasound Report ---
PROCEDURE: OB First Trimester w/TV INDICATIONS: TEST POSITIVE, HX OF SPONTANEOUS ABORTIO OUTSIDE/PRIOR DATING DATA: Last menstrual period (LMP): 03/31/2020. LMP-based estimated date of delivery (ELIZABETH): 01/05/2021. First dating scan (date and location): Today's scan, [facility]. Estimated date of delivery (ELIZABETH) from first dating scan: 01/14/2021. TECHNIQUE: Real-time scanning was performed of the fetus and maternal pelvic organs, with image documentation. Endovaginal scanning was also performed to better visualize the fetus and maternal ovaries. COMPARISON: None. FINDINGS: Embryo: Single living intrauterine with mean sac diameter of 2.0 cm. A pole is prese nt. The crown-rump length measures 0.5 cm which corresponds with an estimated gestational age of 6 we eks 2 days. heart tones are identified, at 120 bpm. Yolk sac is also present. There is a 1.1 x 0.8 x 0.3 cm small focus of subchorionic hemorrhage along the superior aspect of the gestational sac. Measurement variability in dating: +/- 4 weeks by LMP, +/- 7 days by mean sac diameter (use before 6 weeks gestation if crown-rump length not able to be measured), +/- 5 days by crown-rump length (6-12 weeks gestation). Maternal organs: Right ovary measures 2.5 x 2.2 x 1.3 cm. Left ovary measures 2.5 x 2.6 x 2.3 cm. A c orpus luteum follicle is present in the left ovary. Normal Doppler appearance of both ovaries. IMPRESSION: Single living intrauterine with heart rate of 120 bpm. Estimated gestational age base d on crown-rump length is 6 weeks 2 days. Small focus of subchorionic hemorrhage along the superior margin of the gestational sac. Reviewed by: Perry Longoria on 05/23/2020 3:18 PM SILVIA Approved by: Perry Longoria on 05/23/2020 3:18 PM SILVIA Station ID: [id number]
== END 2020-05-23 14:09 | disposition home or self-care (01) ==
LOC: DI 14:08
PROVIDERS: ATTEND Obstetrics & Gynecology
DX: Z32.01 Encounter for pregnancy test, result positive (principal); Z87.59 Personal history of other complications of pregnancy, childbirth and the puerperium; O41.8X10 Other specified disorders of amniotic fluid and membranes, first trimester, not applicable or unspecified; Z3A.01 Less than 8 weeks gestation of pregnancy

== ENCOUNTER 2020-08-30 07:59 | Outpatient (CLI) | payer OTHER, MEDICAID ==
--- NOTE | 2020-08-30 19:48 | Ultrasound Report ---
PROCEDURE: OB Detailed Eval INDICATIONS: SUPERVISION OF NORMAL OUTSIDE/PRIOR DATING DATA: Last menstrual period (LMP): 03/31/2020. LMP-based estimated date of delivery (ELIZABETH): 01/05/2021. First dating scan (date and location): 05/23/2020. Estimated date of delivery (ELIZABETH) from first dating scan: 01/14/2021. The below data below was generated using the ultrasound ELIZABETH of 01/14/2021 TECHNIQUE: Real-time scanning was performed of the fetus, with image documentation and biometric measurements. Endovaginal scanning: Performed. COMPARISON: 05/23/2020 FINDINGS: General: A single living intrauterine gestation is present. Presentation: Vertex Placenta: Placental position is exterior, without previa. Amniotic fluid index: 14.1 cm, normal for gestational age. Largest pocket 4.04 cm. heart rate: 145 beats per minute. Maternal cervical canal: 4.9 cm long; normal length is 2.5 cm or more. biometrics: Biparietal diameter: 5.08 cm, 20 weeks 3 days Head circumference: 18.27 cm, 20 weeks 5 days Abdominal circumference: 16.35 cm, 21 weeks 3 days Femur length: 3.49 cm, 21 weeks 0 days Estimated gestational age from initial scan: 20 weeks 3 days Composite gestational age from present scan: 20 weeks 6 days Estimated weight and percentile: 405 g, 84th percentile. Measurement variability in biometric dating: +/- 10 days from 12-20 weeks gestation, +/- 2 weeks from 20-30 weeks gestation, +/- 3 weeks at 30 weeks gestation or later. Anatomic survey: Neuro: Ventricles are normal at less than 10 mm. Incidental choroid plexus cyst measuring 0.5 cm. Ci sterna magna is normal at 3-11 mm. Cerebellum is normal in size and morphology. Nuchal skin fold: Normal at less than 6 mm between 14 and 20 weeks gestational age. Face: Nose and lips, facial profile are normal. Spine: No evidence for spina bifida. Heart: 4-chambered heart is present. Ventricular outflow tracts not well seen. Diaphragm: Diaphragm is intact. Stomach: Left-sided stomach is present. Kidneys: No hydronephrosis. Normal is less than 5 mm in 2nd trimester, less than 7 mm in 3rd trimester. Cord: 3 vessel cord has orthotopic insertion. Bladder: Normal in size. Extremities: All 4 extremities are visualized. IMPRESSION: 1. Dunn living intrauterine at 20 weeks 6 days based on today's ultrasound. This is co ncordant with the first trimester ultrasound. There is expected interval growth. 2. Normal placenta and amniotic fluid. 3. Cardiac outflow tracts are not well seen. Otherwise normal anatomic survey. -Recommend follow-up OB ultrasound. Reviewed by: George Juan MD on 08/30/2020 7:47 PM PDT Approved by: George Juan MD on 08/30/2020 7:47 PM PDT Station ID: [id number]
== END 2020-08-30 08:00 | disposition home or self-care (01) ==
LOC: DI 07:59
PROVIDERS: ATTEND Midwife
DX: Z34.02 Encounter for supervision of normal first pregnancy, second trimester (principal); Z36.2 Encounter for other antenatal screening follow-up

== ENCOUNTER 2020-09-30 04:02 | Emergency (ER) | payer BC, MEDICAID ==
[2020-09-30 04:09] VITALS: BP 147/87
[2020-09-30 04:15] LABS: BILIRUBIN,URINE NEGATIVE (NEGATIVE); GLUCOSE, URINE (UA) NEGATIVE (NEGATIVE); KETONES,URINE (UA) NEGATIVE (NEGATIVE); LEUKOCYTE ESTERASE, URINE NEGATIVE (NEGATIVE); NITRITE,URINE NEGATIVE (NEGATIVE); OCCULT BLOOD,URINE SMALL (NEGATIVE); PH,URINE 6.5 PH (5.0-7.5); PROTEIN,URINE NEGATIVE (NEGATIVE); UROBILINOGEN,URINE 0.2 (NORMAL) E.U./dL (NORMAL)
[2020-09-30 04:16] LABS: CLARITY,URINE CLEAR (CLEAR)
--- NOTE | 2020-09-30 04:18 | ED Physician Documentation ---
History of Present Illness - Stated complaint Stated Complaint: LOW BACK PX, - Chief complaint Chief Complaint: Back Pain - History obtained from History obtained from: Patient - Additonal information Additional information: 25-week patient presents to the emergency department with chief complaint of back pain which started earlier today. She states that it does not really feel like contractions necessarily coming in waves but just a constant pain which is gotten worse. She states that it starts in her right lower back and radiates through her vagina and her SI joint on the same side. She denies any dysuria. No abdominal pain. She is still been feeling the baby move. No fevers or chills. No nausea or vomiting. Patient states that she has not had any problems with the . No fluid leakage or vaginal bleeding. No other complaints at this time. Review of Systems Ten Systems: 10 systems reviewed and negative Constitutional: reports: Reviewed and negative Eyes: reports: Reviewed and negative Ears: reports: Reviewed and negative Nose: reports: Reviewed and negative Throat: reports: Reviewed and negative Cardiac: reports: Reviewed and negative Respiratory: reports: Reviewed and negative GI: reports: Reviewed and negative : reports: Reviewed and negative Skin: reports: Reviewed and negative Musculoskeletal: reports: Back pain Neurologic: reports: Reviewed and negative Psychiatric: reports: Reviewed and negative Endocrine: reports: Reviewed and negative Immunocompromised: reports: Reviewed and negative PD PAST MEDICAL HISTORY - Past Medical History Past Medical History: Yes Cardiovascular: Hypertension Respiratory: None Neuro: Seizure disorder Endocrine/Autoimmune: None GI: GERD PERINATOLOGY PHYSICIAN: None : None HEENT: None Psych: Depression, Anxiety, ADD/ADHD, Post traumatic stress disorder Musculoskeletal: None Derm: Eczema - Past Surgical History Past Surgical History: Yes HEENT: Tonsil/Adenoidectomy - Present Medications Home Medications: Ambulatory Orders Medication Instructions Recorded Confirmed Ibuprofen [Motrin] 800 mg PO Q8H PRN #30 tablet 06/18/19 Ondansetron Odt [Zofran] 4 mg TL Q6H PRN #10 tablet 06/18/19 DULoxetine [Cymbalta] 30 mg PO DAILY #30 capsule 12/30/19 HYDROcod/ACETAM 5/325 [[place] 5/325] 1 - 2 ea PO Q6H PRN #15 tablet 12/30/19 predniSONE [Deltasone] 40 mg PO DAILY 5 Days tablet 12/30/19 - Allergies Allergies/Adverse Reactions: Allergies Allergy/AdvReac Type Severity Reaction Status Date / Time adhesives AdvReac Unknown Rash Uncoded 09/30/20 04:11 coban AdvReac Unknown Uncoded 09/30/20 04:11 - Social History Does the pt smoke?: No Smoking Status: Never smoker Does the pt drink ETOH?: Yes Does the pt have substance abuse?: No - Immunizations Immunizations are current?: Yes - POLST Patient has POLST: No PD ED PE NORMAL - Vitals Vital signs reviewed: Yes - General General: Alert and oriented X 3, Well developed/nourished, Other (Patient appears uncomfortable but otherwise no apparent distress.) - HEENT HEENT: Atraumatic, PERRL, EOMI, Moist mucous membranes - Neck Neck: Supple, no meningeal sign - Cardiac Cardiac: RRR, No murmur, Strong equal pulses - Respiratory Respiratory: No respiratory distress, Clear bilaterally - Abdomen Abdomen: Soft, Non tender, Other (Gravid, appropriate for stated gestational age.) - Back Back: No CVA TTP, No spinal TTP, Other (Tenderness palpation over right lumbar paraspinal musculature, extending down to right SI joint.) - Derm Derm: Normal color, Warm and dry, No rash - Extremities Extremities: No deformity - Neuro Neuro: Alert and oriented X 3, carpenter's helper 2-12 intact, Normal speech - Psych Psych: Normal mood, Normal affect Results - Vitals Vitals: Vital Signs - 24 hr 09/30/20 04:03 Temperature 36.9 C Heart Rate 103 H Respiratory 19 Rate Blood Pressure 147/87 H O2 Saturation 98 Oxygen O2 Source Room air - Labs Labs: Laboratory Tests 09/30/20 04:00 Urine Color YELLOW Urine Clarity CLEAR Urine pH 6.5 Ur Specific [place] 1.020 Urine Protein NEGATIVE Urine Glucose (UA) NEGATIVE Urine Ketones NEGATIVE Urine Occult Blood SMALL H Urine Nitrite NEGATIVE Urine Bilirubin NEGATIVE Urine Urobilinogen 0.2 (NORMAL) Ur Leukocyte Esterase NEGATIVE Urine RBC 6-10 H Urine WBC 0-3 Ur Squamous Epith Cells MOD Squamous H Amorphous Sediment Few Urine Bacteria Few Ur Microscopic Review INDICATED Urine Culture Comments NOT INDICATED PD MEDICAL DECISION MAKING - ED course Complexity details: reviewed results, re-evaluated patient, considered differential, d/w patient ED course: Patient was worked up with urinalysis and heart tones, which were found to be appropriate. She was treated symptomatically with Vicodin and prednisone. Urinalysis was negative. At this point, I felt the patient should go over to labor and delivery for toco monitoring, to be sure she was not in any form of labor. I discussed this with patient we did call L&D to let them know the patient would be coming over. Patient was taken over by emergency department staff. Departure - Departure Disposition: 01 Home, Self Care Clinical Impression: Back pain Qualifiers: Back pain location: low back pain Chronicity: acute Back pain laterality: right Sciatica presence: with sciatica Sciatica laterality: sciatica of right side Qualified Code(s): M54.41 - Lumbago with sciatica, right side Condition: Stable Instructions: ED Neck Back Pain General Comments: Please go straight to labor and delivery from the emergency department for monitoring to be sure you are not in labor. Discharge Date/Time: 09/30/20 04:34
[2020-09-30 04:20] LABS: BACTERIA,URINE Few /HPF (None Seen); SQUAMOUS EPITHELIAL CELL,UR MOD Squamous (<= Few); WBC,URINE 0-3 /HPF (0-5)
[2020-09-30 04:21] LABS: AMORPHOUS SEDIMENT,UR Few /LPF
[2020-09-30] MEDS ORDERED: HYDROcod/ACETAM 5/325 MG TABLET PO STA (04:23)
[2020-09-30] MEDS ORDERED: ONDANSETRON ODT 4 MG TABLET TL STA (04:24)
[2020-09-30] MEDS ORDERED: predniSONE 20 MG TABLET PO STA (04:24)
== END 2020-09-30 04:34 | disposition home or self-care (01) ==
LOC: ED 04:02
DX: O99.891 Other specified diseases and conditions complicating pregnancy (principal); M54.41 Lumbago with sciatica, right side; O16.2 Unspecified maternal hypertension, second trimester; Z3A.25 25 weeks gestation of pregnancy; O26.832 Pregnancy related renal disease, second trimester; N20.0 Calculus of kidney; Z3A.26 26 weeks gestation of pregnancy
CPT/HCPCS: 76817; 80306; 81001; 99282; 99283; A9270; J7512; Q0162; 81003; 87086; 99213

== ENCOUNTER 2020-09-30 04:52 | Outpatient (CLI) | payer OTHER, MEDICAID ==
[2020-09-30 05:32] LABS: MUDS CUTOFF CONCENTRATIONS CUTOFF CONC BELOW:
[2020-09-30 05:34] LABS: BILIRUBIN,URINE NEGATIVE (NEGATIVE); GLUCOSE, URINE (UA) NEGATIVE (NEGATIVE); KETONES,URINE (UA) NEGATIVE (NEGATIVE); LEUKOCYTE ESTERASE, URINE NEGATIVE (NEGATIVE); NITRITE,URINE NEGATIVE (NEGATIVE); OCCULT BLOOD,URINE TRACE-LYSE (NEGATIVE); PH,URINE 6.5 PH (5.0-7.5); PROTEIN,URINE NEGATIVE (NEGATIVE); UROBILINOGEN,URINE 0.2 (NORMAL) E.U./dL (NORMAL)
[2020-09-30 05:42] LABS: CLARITY,URINE HAZY (CLEAR)
[2020-09-30 05:44] LABS: AMORPHOUS SEDIMENT,UR Few /LPF; BACTERIA,URINE Few /HPF (None Seen); RBC,URINE 0-5 /HPF (0-5); SQUAMOUS EPITHELIAL CELL,UR MOD Squamous (<= Few); WBC,URINE 0-3 /HPF (0-5)
[2020-09-30 05:47] LABS: AMPHETAMINE SCREEN,URINE NEGATIVE (NEGATIVE); BARBITURATE SCREEN,UR NEGATIVE (NEGATIVE); BENZODIAZEPINES SCREEN, URINE NEGATIVE (NEGATIVE); COCAINE SCREEN URINE NEGATIVE (NEGATIVE); METHADONE SCREEN, URINE NEGATIVE (NEGATIVE); METHAMPHETAMINES SCREEN, URINE NEGATIVE (NEGATIVE); OPIATE SCREEN, URINE NEGATIVE (NEGATIVE); OXYCODONE SCREEN, URINE NEGATIVE (NEGATIVE); PROPOXYPHENE SCREEN, URINE NEGATIVE (NEGATIVE); THC CANNABINOID SCREEN, URINE POSITIVE (NEGATIVE); TRICYCLIC ANTIDEPRESSANT,URINE NEGATIVE (NEGATIVE)
[2020-09-30 05:48] VITALS: BP 129/67
[2020-09-30] MEDS ORDERED: oxyCODONE 5 MG TABLET PO ONE (07:23)
--- NOTE | 2020-09-30 08:53 | Ultrasound Report ---
PROCEDURE: OB Transvaginal INDICATIONS: PELVIC PRESSURE, CERVICAL LENGTH ONLY TECHNIQUE: Limited transvaginal ultrasound to obtain cervical length. COMPARISON: 08/30/2020 FINDINGS: Last menstrual period 03/31/2020. Estimated date of delivery by last menstrual period of 01/05/2021. First dating ultrasound obtained 05/23/2020. Estimated date of delivery based on first ultrasound 01/14/2021. There is a single live intrauterine gestation with heart rate of 144 bpm. Placenta is posterior . There is no evidence of previa or abruption on these images. The cervix is closed and measures 4.7 cm in length. MILLY is approximately 19 cm. IMPRESSION: Single live intrauterine gestation. Normal appearance of the maternal cervix measuring 4.7 cm in length. Reviewed by: Yvon Akbar MD on 09/30/2020 8:52 AM PDT Approved by: Yvon Akbar MD on 09/30/2020 8:52 AM PDT Station ID: [id number]
--- NOTE | 2020-09-30 12:47 | HISTORY & PHYSICAL EXAMINATION ---
History and Physical - History and Physical Indication: Patient is a 25-year-old G7, P1 female at 26 weeks and 1 day her EDC is December Chief complaint: Right flank pain which radiates to the lateral abdomen and toward the groin Patient states that last evening she developed a dull ache which awakened her at roughly midnight it became progressively worse with time and is quite painful. She denies any history of any renal lithiasis in the past however she has a history of a father who has had 3 kidney stones in the past. She denies any cramping contractions at this time. She denies any urgency frequency or dysuria. Past medical history: Disorder last seizure was September 2017 head injury PTSD anxiety depression Surgical: history tonsillectomy Allergies: Adhesive tape. 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 Physical examination vital signs are stable she is afebrile at this time. HEENT: Pupils equal round extraocular muscle intact Heart: regular rate and rhythm without murmurs Lung saldivar: clear without rales or wheezes abdomen soft nontender Back: shows striking right flank tenderness duplicating the pain she is complaining. The pain appears to be radiating down the lateral aspect on the right-hand side and toward the groin. Ultrasound shows a cervix which is long thick and closed Urinalysis shows trace lysed red cells no evidence of any bacteriuria. Impression number one 25-year-old G7, P1 female at 26 weeks #2 renal lithiasis possible renal colic plan at this point will administer oxycodone 10 mg by mouth we will give patient a prescription for oxycodone. She is to call should she not get better or get progressively worse.
== END 2020-09-30 07:40 | disposition home or self-care (01) ==
LOC: WFO 04:52 → FBP 04:54 → WFO 07:40
PROVIDERS: ATTEND Obstetrics & Gynecology
DX: O26.832 Pregnancy related renal disease, second trimester (principal); N20.0 Calculus of kidney; Z3A.26 26 weeks gestation of pregnancy
CPT/HCPCS: 80306; 81001; 87086; 99213

== ENCOUNTER 2020-12-18 13:36 | Outpatient (CLI) | payer BC, MEDICAID ==
[2020-12-18 14:03] LABS: CREATININE,URINE 131.1 mg/dL; PROTEIN/CREATININE RATIO,URINE 0.1 (<=0.2)
[2020-12-18 14:47] LABS: BASOPHILS % (AUTO) 0.1 %; EOSINOPHILS # (AUTO) 0.1 10^3/uL (0.0-0.7); EOSINOPHILS % (AUTO) 0.7 %; HCT - HEMATOCRIT 33.4 % (37.0-47.0); HGB - HEMOGLOBIN 11.3 g/dL (12.0-16.0); LYMPHOCYTES # (AUTO) 1.2 10^3/uL (1.5-3.5); LYMPHOCYTES % (AUTO) 16.3 %; MEAN CORPUSCULAR HEMOGLOBIN 31.9 pg (27.0-31.0); MEAN CORPUSCULAR HGB CONC 33.8 g/dL (32.0-36.0); MEAN CORPUSCULAR VOLUME 94.4 fL (81.0-99.0); MEAN PLATELET VOLUME 10.5 fL (7.9-10.8); MONOCYTES # (AUTO) 0.4 10^3/uL (0.0-1.0); MONOCYTES % (AUTO) 5.1 %; NEUTROPHILS # (AUTO) 5.8 10^3/uL (1.5-6.6); NEUTROPHILS % (AUTO) 77.7 %; PLT - PLATELET COUNT 161 10^3/uL (130-450); RED BLOOD COUNT 3.54 10^6/uL (4.20-5.40); RED CELL DISTRIBUTION WIDTH 13.8 % (12.0-15.0); WHITE BLOOD COUNT 7.5 x10^3/uL (4.8-10.8)
[2020-12-18 15:07] LABS: ALBUMIN 2.9 g/dL (3.2-5.5); ALBUMIN/GLOBULIN RATIO 0.8 (1.0-2.2); BILIRUBIN,TOTAL 0.3 mg/dL (0.2-1.0); CALCIUM 8.1 mg/dL (8.5-10.3); CREATININE 0.5 mg/dL (0.4-1.0); POTASSIUM 3.6 mmol/L (3.5-5.0); TOTAL PROTEIN 6.4 g/dL (6.7-8.2); URIC ACID 5.8 mg/dL (2.6-7.2)
== END 2020-12-18 13:37 | disposition home or self-care (01) ==
LOC: LAB 13:36
PROVIDERS: ATTEND Midwife
DX: O16.3 Unspecified maternal hypertension, third trimester (principal)
CPT/HCPCS: 36415; 80053; 82570; 84156; 84550; 85025

== ENCOUNTER 2020-12-19 06:30 | Outpatient (CLI) | payer BC, MEDICAID ==
[2020-12-19 07:43] VITALS: BP 123/69
--- NOTE | 2020-12-19 11:07 | PROVIDER PROGRESS NOTE ---
- HPI Current : Current EDU 01/14/21 Gestation 36 Weeks and 2 Days 7 Para 1 Vital Signs Temperature 209.8 F H 12/19/20 06:38 Heart Rate 67 12/19/20 06:38 Respiratory Rate 20 12/19/20 06:38 Blood Pressure 137/82 H 12/19/20 06:38 Temperature 98.1 F 12/19/20 07:27 Heart Rate 78 12/19/20 07:27 Respiratory Rate 17 12/19/20 07:27 Blood Pressure 123/69 12/19/20 07:27 O2 Saturation 97 12/19/20 07:27 - Procedures NST Procedure: NST Procedure Start Time 15:20 Stop Time 15:50 EFM 125 mod eusebio 15x15 accels no decels TOCO: intermittent and mild Service Date of procedure: 12/19/20 Procedure Details: Cat I tracing - Plan Plan: Deepali is a 25yo @ 36+2 wga followed by Amy Mejia CPM, of [facility]. She presents today for blood pressure check. Patient was delivered in prior at 38 weeks for GHTN. She has not had elevated blood pressures this . However, she had PIH labs drawn yesterday to screen for changes that could suggest pre-eclampsia, per patient report. Labs were wnl. Review of records show no elevated blood pressures this . She reports that her dog jumped on her and startled her this am, so she took her blood pressure immediately after. it was 160/102. She was told to present to the ED for evaluation. Denies ANNE/vision change/RUQ pain. 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 FOB Fernando ROS: As per HPI, otherwise remaining systems are negative PE: VS: 98.1 78 123/69 17 97 GEN: NAD HEENT: Normocephalic, atraumatic Heart: RR RESP: nl effort CTAB ABD: gravid, soft and nontender, No RUQ tenderness noted upon palpation EXT: Bilateral LE's no edema NEURO: Brisk reflexes, A&O PSYCH: appropriate affect EFM: as above A/P: 25 yo at 36+2 wga here for HTN assessment Serial blood pressures were checked over 2.5 hours. All wnl. Not meeting criteria for GHTN with mild or severe features No PIH symptoms PIH labs collected < 24 hours ago wnl Reviewed brisk reflexes are concerning but non-diagnostic High concern that Pre-e may be developing Reviewed warning signs Reviewed that even mild range BPs would be indication for delivery at 37 wga Severe range s/s would be indication for delivery at present NST: cat I tracing FU with primary OB or sooner as indicated DOS: 12/19/20 NST read 12/19/20
== END 2020-12-19 09:00 | disposition home or self-care (01) ==
LOC: WFO 06:30 → FBP 06:32 → WFO 09:00
PROVIDERS: ATTEND Obstetrics & Gynecology
DX: O26.893 Other specified pregnancy related conditions, third trimester (principal); O26.23 Pregnancy care for patient with recurrent pregnancy loss, third trimester; Z87.59 Personal history of other complications of pregnancy, childbirth and the puerperium; Z3A.36 36 weeks gestation of pregnancy; Z87.891 Personal history of nicotine dependence
CPT/HCPCS: 99214

== ENCOUNTER 2021-11-03 16:36 | Emergency (ER) | payer BC, MEDICAID, OTHER ==
[2021-11-03 16:45] VITALS: BP 135/65
[2021-11-03] MEDS ORDERED: KETOROLAC 30 MG/ML VIAL IVP STA (17:01)
--- NOTE | 2021-11-03 17:13 | ED Physician Documentation ---
History of Present Illness - Stated complaint Stated Complaint: LT FOOT INJ - Chief complaint Chief Complaint: Trauma Ext - Additonal information Additional information: 26-year-old female presents emergency department for evaluation of acute left ankle pain. 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 No history of previous injury. PD PAST MEDICAL HISTORY - Past Medical History Cardiovascular: Hypertension Respiratory: None Neuro: Seizure disorder Endocrine/Autoimmune: None GI: GERD PANMAN: None : None HEENT: None Psych: Depression, Anxiety, ADD/ADHD, Post traumatic stress disorder Musculoskeletal: None Derm: Eczema - Past Surgical History Past Surgical History: Yes HEENT: Tonsil/Adenoidectomy - Present Medications Home Medications: Ambulatory Orders Medication Instructions Recorded Confirmed Ibuprofen [Motrin] 800 mg PO Q8H PRN #30 tablet 06/18/19 Ondansetron Odt [Zofran] 4 mg TL Q6H PRN #10 tablet 06/18/19 DULoxetine [Cymbalta] 30 mg PO DAILY #30 capsule 12/30/19 HYDROcod/ACETAM 5/325 [[place] 5/325] 1 - 2 ea PO Q6H PRN #15 tablet 12/30/19 predniSONE [Deltasone] 40 mg PO DAILY 5 Days tablet 12/30/19 - Allergies Allergies/Adverse Reactions: Allergies Allergy/AdvReac Type Severity Reaction Status Date / Time adhesives AdvReac Unknown Rash Uncoded 11/03/21 16:45 coban AdvReac Unknown Uncoded 11/03/21 16:45 - Social History Does the pt smoke?: No Smoking Status: Never smoker Does the pt drink ETOH?: Yes Does the pt have substance abuse?: No - Immunizations Immunizations are current?: Yes - POLST Patient has POLST: No PD ED PE NORMAL - General General: Alert and oriented X 3, No acute distress - HEENT HEENT: Atraumatic, Moist mucous membranes - Neck Neck: Supple, no meningeal sign, No adenopathy - Cardiac Cardiac: RRR, No murmur - Respiratory Respiratory: No respiratory distress - Abdomen Abdomen: Normal bowel sounds, Soft - Extremities Extremities: Other (Swelling and tenderness lateral malleolus. Patient is unable to bear weight on the foot. 2+ DP pulse. Distally neurovascularly intact) Results - Vitals Vitals: Vital Signs - 24 hr 11/03/21 16:40 Temperature 36.4 C L Heart Rate 87 Respiratory 16 Rate Blood Pressure 135/65 H O2 Saturation 99 Oxygen O2 Source Room air - Rads (name of study) left ankle Radiology: Final report received (No evidence of acute bony abnormality of the left ankle) PD MEDICAL DECISION MAKING - ED course Complexity details: considered differential, d/w patient ED course: 26-year-old female presents emergency department for evaluation of acute left ankle pain after an inversion injury earlier today. She has fair amount of swelling of the lateral malleolus and is unwilling and unable to bear weight. Most of the tenderness is distal to the malleoli or process. X-ray does not reveal any acute fracture. I suspect that she has a fairly severe sprain. Patient is placed in an air splint and given crutches. Advised that if not billy edly better in 7 to 10 days her imaging should be repeated but given the severity of the symptoms may ultimately need follow-up with orthopedics or PT. Otherwise emergent return precautions discussed Departure - Departure Disposition: 01 Home, Self Care Clinical Impression: Inversion sprain of left ankle Qualifiers: Encounter type: initial encounter Qualified Code(s): S93.402A - Sprain of unspecified ligament of left ankle, initial encounter Condition: Stable Record reviewed to determine appropriate education?: Yes Instructions: ED Sprain Ankle W X Ray Comments: Deepali you are seen today in the emergency department after you rolled your ankle and felt a pop in the joint. The x-ray does not reveal an obvious fracture though it is likely that you have a very severe sprain. I would like you to wear the stirrup splint when out of bed for the next 7 to 10 days. I would like you to take 600 mg of ibuprofen with food 2-3 times a day and alternate with Tylenol 500 mg also 2-3 times a day. With moderate to severe sprain I would expect improved swelling and pain over the next 7 to 10 days. If not markedly better you should have your ankle reimaged to rule out an occult fracture though you may in the long-term benefit from referral to an orthopedist and/or physical therapy.
[2021-11-03] MEDS ORDERED: KETOROLAC 30 MG/ML VIAL IM STA (17:15)
--- NOTE | 2021-11-03 17:39 | XRAY Report ---
PROCEDURE: Ankle 3 View LT INDICATIONS: inversion injury TECHNIQUE: 3 views of the ankle were acquired. COMPARISON: None FINDINGS: Bones: No fractures or dislocations. Ankle mortise is normally aligned. No suspicious bony lesions . Soft tissues: No tibiotalar joint effusion. Achilles tendon appears normal. IMPRESSION: No evidence acute bony abnormality of the left ankle. If clinical suspicion and/or symptoms persist, further assessment with repeat plain films or advanced imaging (e.g., CT, MRI, or bone scan) may be helpful for further assessment. Reviewed by: Frantz Wallace MD on 11/03/2021 5:37 PM PDT Approved by: Frantz Wallace MD on 11/03/2021 5:37 PM PDT Station ID: [id number]
== END 2021-11-03 18:19 | disposition home or self-care (01) ==
LOC: ED 16:36
DX: S93.402A Sprain of unspecified ligament of left ankle, initial encounter (principal); X50.1XXA Overexertion from prolonged static or awkward postures, initial encounter; I10 Essential (primary) hypertension
CPT/HCPCS: 96372; 99281; 99283